=== PATIENT | male | born 1960 | race Caucasian/White ===

== ENCOUNTER 2018-04-06 19:23 | Emergency (ER) | payer SELFPAY ==
--- OUTSIDE RECORDS SUMMARY | 2018-04-06 19:25 | XMS REPORT ---
:1960 Author Organization eClinicalWorks Care Team Providers Name Role Phone Garima Kwok Provider Role Unavailable Allergies, Adverse Reactions, Alerts Substance Reaction Event Type N.K.D.A. 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 Medications Medication Code Code Instructions Start End Status Dosage System Date Date Metformin HCl [facility] 42879471349 1000MG Orally Active take one Twice a day tablet by mouth once daily in the morning before breakfast GlyBURIDE ND 58329383224 5MG Orally Active take one twice a day tablet by with meals mouth twice daily before meal(s) Tamsulosin HCl ND 23521592830 0.4MG Orally Mar 14, Active take one Once a day 2018 capsule by mouth once daily in evening Pravastatin ND 08061055929 20 MG Orally Active 1 tablet Sodium Once a day Gabapentin ND [id number] 300 MG Orally September 15, Active 1 capsule Twice a day 2017 Results No Known Results Summary Purpose eClinicalWorks Submission
[2018-04-06] MEDS ORDERED: LIDOCAINE 1% MPF 5 ML VIAL ONE (19:51)
--- NOTE | 2018-04-06 20:20 | EDPHYS ---
Physician Documentation [facility] Name: Wayne Billy Age: 57 yrs Sex: Male : 1960 Arrival Date: 04/06/2018 Time: 19:26 Bed 19 Private MD: ED Physician Jose Carballo HPI: 04/06 20:14 This 57 yrs old Male presents to ER via Ambulatory with complaints of gs Splinter under nail. 20:14 The complaints affect the left thumbnail. Onset: The symptoms/episode began/occurred 2 gs day(s) ago. Modifying factors: The symptoms are alleviated by nothing, the symptoms are aggravated by nothing. Associated signs and symptoms: Pertinent negatives: fever. Severity of symptoms: At their worst the symptoms were moderate, in the emergency department the symptoms are unchanged. The patient has not experienced similar symptoms in the past. Historical: - Allergies: 19:36 No Known Allergies; ak1 - Home Meds: 19:36 Glyburide Oral [Active]; metformin 1,000 mg Oral tr24 once daily [Active]; ak1 - PMHx: 19:36 Diabetes - NIDDM; ak1 - PSHx: 19:36 Hernia repair; ak1 - Immunization history:: Adult Immunizations unknown, Last tetanus immunization: > 10 years ago. - Social history:: Smoking status: Patient/guardian denies using tobacco. - Ebola Screening: : No symptoms or risks identified at this time. ROS: 20:14 All other systems are negative. gs Exam: 20:14 Skin: Warm, dry with normal turgor. Normal color with no rashes, no lesions, and no gs evidence of cellulitis. Neuro: Awake and alert, GCS 15, oriented to person, place, time, and situation. Cranial nerves II-XII grossly intact. Motor strength 5/5 in all extremities. Sensory grossly intact. Cerebellar exam normal. Normal gait. 20:14 Constitutional: The patient appears alert, awake. 20:14 Musculoskeletal/extremity: ROM: no acute changes, Circulation is intact in all extremities. fb splinter under thumbnail no cellulitis. Vital Signs: 19:33 BP 141 / 85; Pulse 108; Resp 16; Temp 99.9(O); Pulse Ox 97% on R/A; Weight 90.72 kg ak1 (R); Height 5 ft. 8 in. (172.72 cm) (R); Pain 5/10; 19:33 Body Mass Index 30.41 (90.72 kg, 172.72 cm) ak1 Procedures: 20:14 Foreign Body Removal: sliver of wood, from the left left thumbnail, by using a hemostat, The patient tolerated the removal well. Nerve block: (digital) of left thumb. Medication: Lidocaine 1% without epinephrine Amount: 2 mls were injected, Effect: the patient's symptoms are improved, Set up for procedure. Performed by Jose Carballo MD Patient tolerated well. MDM: 19:39 Patient medically screened. 20:14 Data reviewed: vital signs, nurses notes. 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 Exp: ak1 04/17/2020. Lot #: [id number]. } Route: IM; Site: right deltoid; 21:00 Follow up: Response: No adverse reaction ak Disposition: 04/06/18 20:20 Discharged to Home. Impression: Puncture wound with foreign body of left hand. - Condition is Stable. - Prescriptions for Keflex 500 mg Oral Capsule - take 1 capsule by ORAL route every 12 hours for 7 days; 14 capsule. - Medication Reconciliation Form, Thank You Letter, Antibiotic Education, Prescription Opioid Use form. - Follow up: Private Physician; When: 2 - 3 days; Reason: Re-evaluation by your physician. Signatures: Brooklynn Baker RN RN [facility] Jose Carballo MD MD Corrections: (The following items were deleted from the chart) 20:14 19:33 Immunization history: Adult Immunizations unknown, Last tetanus immunization: < gs 10 years ago ak1 20:37 20:20 04/06/2018 20:20 Discharged to Home. Impression: Puncture wound with foreign body ak1 of left hand. Condition is Stable. Forms are Medication Reconciliation Form, Thank You Letter, Antibiotic Education, Prescription Opioid Use. Follow up: Private Physician; When: 2 - 3 days; Reason: Re-evaluation by your physician.
--- NOTE | 2018-04-06 20:20 | ER ---
Nurse's Notes [facility] Name: Wayne Billy Age: 57 yrs Sex: Male : 1960 Arrival Date: 04/06/2018 Time: 19:26 Bed 19 Private MD: Diagnosis: Puncture wound with foreign body of left hand Presentation: 04/06 19:33 Presenting complaint: Patient states: left thumb nail with wooden splinter happened ak1 yesterday. pt c/o soreness to left thumbnail. Transition of care: patient was not received from another setting of care. Onset of symptoms was April 05, 2018. Risk Assessment: Do you want to hurt yourself or someone else? Patient reports no desire to harm self or others. Initial Sepsis Screen: Does the patient meet any 2 criteria? No. Patient's initial sepsis screen is negative. Does the patient have a suspected source of infection? No. Patient's initial sepsis screen is negative. Care prior to arrival: None. 19:33 Method Of Arrival: Ambulatory ak1 19:33 Acuity: CRISTAL 4 ak1 Triage Assessment: 19:36 General: Appears in no apparent distress. Behavior is calm, cooperative. Pain: ak1 Complains of pain in left thumbnail. EENT: No signs and/or symptoms were reported regarding the EENT system. Neuro: No deficits noted. Cardiovascular: No deficits noted. Respiratory: No deficits noted. GI: No signs and/or symptoms were reported involving the gastrointestinal system. : No signs and/or symptoms were reported regarding the genitourinary system. Derm: FB noted under left thumb nail. Musculoskeletal: No signs and/or symptoms reported regarding the musculoskeletal system. Historical: - Allergies: 19:36 No Known Allergies; ak1 - Home Meds: 19:36 Glyburide Oral [Active]; metformin 1,000 mg Oral tr24 once daily [Active]; ak1 - PMHx: 19:36 Diabetes - NIDDM; ak1 - PSHx: 19:36 Hernia repair; ak1 - Immunization history:: Adult Immunizations unknown, Last tetanus immunization: > 10 years ago. - Social history:: Smoking status: Patient/guardian denies using tobacco. - Ebola Screening: : No symptoms or risks identified at this time. Screenin:38 Abuse screen: Denies threats or abuse. Denies injuries from another. Nutritional ak1 screening: No deficits noted. Tuberculosis screening: No symptoms or risk factors identified. Fall Risk None identified. Assessment: 19:39 Reassessment: Patient appears in no apparent distress at this time. No changes from ak1 previously documented assessment. Patient and/or family updated on plan of care and expected duration. Pain level reassessed. Patient is alert, oriented x 3, equal unlabored respirations, skin warm/dry/pink. no change from triage assessment. 20:37 Reassessment: left thumb bandaged with non adherent dressing and Tegaderm per pt ak1 request. Vital Signs: 19:33 BP 141 / 85; Pulse 108; Resp 16; Temp 99.9(O); Pulse Ox 97% on R/A; Weight 90.72 kg ak1 (R); Height 5 ft. 8 in. (172.72 cm) (R); Pain 5/10; 19:33 Body Mass Index 30.41 (90.72 kg, 172.72 cm) ak1 ED Course: 19:26 Patient arrived in ED. es 19:28 Jose Carballo MD is Attending Physician. gs 19:33 Brooklynn Baker, RN is Primary Nurse. ak1 19:34 Triage completed. ak1 19:36 Arm band placed on Patient placed in an exam room, on a stretcher, Patient notified of ak1 wait time. 19:38 Patient has correct armband on for positive identification. Bed in low position. Call ak1 light in reach. Side rails up X 1. Pulse ox on. NIBP on. 20:30 No provider procedures requiring assistance completed. Patient did not have IV access ak1 during this emergency room visit. Administered Medications: 19:43 Drug: Lidocaine (2 %) 5 mg Volume: 5 ml; Route: Infiltration; ak1 20:24 Drug: Tetanus-Diphtheria Toxoid Adult 0.5 ml {Talcer: [employer]. Exp: ak1 04/17/2020. Lot #: [id number]. } Route: IM; Site: right deltoid; 21:00 Follow up: Response: No adverse reaction ak1 Outcome: 20:20 Discharge ordered by . gs 20:30 Discharged to home ambulatory, with family. ak1 20:30 Condition: good 20:36 Discharge instructions given to patient, Instructed on discharge instructions, follow ak1 up and referral plans. medication usage, wound care, Demonstrated understanding of instructions, follow-up care, medications, wound care, Prescriptions given X 1. 20:37 Patient left the ED. ak1 Signatures: Sheba Thomas Amber, RN RN ak1 Jose Carballo MD MD gs Corrections: (The following items were deleted from the chart) 20:14 19:33 Immunization history: Adult Immunizations unknown, Last tetanus immunization: < gs 10 years ago ak1
[2018-04-06] MEDS ORDERED: TETANUS & DIPHTHERIA TOX,ADULT 0.5 ML VIAL ONE (20:30)
== END 2018-04-06 20:37 | disposition home or self-care (01) ==
LOC: ER 19:23
PROC: 3E0T3BZ Introduction of Anesthetic Agent into Peripheral Nerves and Plexi, Percutaneous Approach (ICD-10-PCS; principal; 2018-04-06)
DX: S61.042A Puncture wound with foreign body of left thumb without damage to nail, initial encounter (principal); W45.8XXA Other foreign body or object entering through skin, initial encounter; Z23 Encounter for immunization; E11.9 Type 2 diabetes mellitus without complications; Z79.84 Long term (current) use of oral hypoglycemic drugs
CPT/HCPCS: 64450; 90714; 99283

== ENCOUNTER 2020-11-28 07:09 | Day surgery (SDC) | payer OTHER ==
[2020-11-28] MEDS ORDERED: NA CHLORIDE 0.9% 1,000 ML ONE (07:49)
[2020-11-28] MEDS ORDERED: LIDOCAINE 1% MPF 30 ML VIAL ONE (07:58)
[2020-11-28] MEDS ORDERED: MIDAZOLAM HCL 2 MG/2 ML INJ ONE (07:58)
[2020-11-28] MEDS ORDERED: propofoL 200 MG/20 ML VIAL IV ONE ×2 (07:58)
[2020-11-28] MEDS ORDERED: FENTANYL CITR 100 MCG/2 ML ONE (07:58)
[2020-11-28] MEDS ORDERED: CEFAZOLIN/SWI 1gm 1 GM/10 ML SYR ONE (08:21)
--- NOTE | 2020-11-28 08:41 | ENDO RPT ---
[address], [address] EGD WITH PEG PROCEDURE REPORT EXAM DATE: 11/28/2020 PATIENT NAME: Wayne Billy MR #: [id number] BIRTHDATE: 1960 ATTENDING: Freddy Calixto DR STATUS: outpatient SUPERVISOR STATEMENT CLERKS: Ligia Lorenz RN INDICATIONS: The patient is a 59 yr old Male here for an EGD with PEG due to dysphagia and Oropharyngeal cancer PROCEDURE PERFORMED: EGD with biopsy EGD-PEG MEDICATIONS: Per Anesthesia. TOPICAL ANESTHETIC: none CONSENT: The patient understands the risks and benefits of the procedure and understands that these risks include, but are not limited to: sedation, allergic reaction, infection, perforation and/or bleeding. Alternative means of evaluation and treatment include, among others: physical exam, x-rays, and/or surgical intervention. The patient elects to proceed with this endoscopic procedure. DESCRIPTION OF PROCEDURE: During intra-op preparation period all mechanical medical equipment was checked for proper function. Hand hygiene and appropriate measures for infection prevention was taken. After the risks, benefits and alternatives of the procedure were thoroughly explained, Informed consent was verified, confirmed and timeout was successfully executed by the treatment team. The patient was anesthetized with topical anesthesia and the EG-[id number] ([id number]) endoscope was introduced through the mouth and advanced to the second portion of the duodenum. The instrument was slowly withdrawn as the mucosa was fully examined. Duodenitis was found in the bulb and descending duodenum. A biopsy for H. pylori was taken. The stomach was then inflated with air, and by a combination of transillumination and manual palpation, the site for the gastrostomy tube placement was selected and marked on the anterior abdominal wall. The skin of the anterior abdomen was surgically prepped and draped with sterile towels. Utilizing strict sterile technique, the selected site was then anesthetized with 1% xylocaine by injection into the skin and subcutaneous tissue. A 1 cm incision was made through the skin and subcutaneous tissue, and the needle/cannula assembly was then passed through the abdominal wall and through the anterior wall of the stomach, maintaining visualization with the endoscope. A snare device previously placed through the instrument channel was then opened and placed around the cannula, the needle was removed, and the insertion wire was passed through the cannula and into the stomach lumen. The snare was then loosened from the cannula, and repositioned to snare the insertion wire. The snare was then pulled up to the endoscope distal tip, and the scope was then withdrawn bringing with it the snare and insertion wire. The insertion wire was then released from the snare, and then loop-attached to the PEG PULL gastrostomy tube. Using the pull technique, the G-tube was then pulled into place by traction on the insertion wire at the abdominal wall end. The G-tube insertion site was then cleansed once again, and the external bolster was placed over the tube to secure it to the abdominal wall. A sterile dressing was then applied, and the procedure terminated. Retroflexed views revealed no abnormalities. The gastroscope was then slowly withdrawn and removed. ADVERSE EVENT: There were no complications. IMPRESSIONS: Duodenitis was found in the bulb and descending duodenum RECOMMENDATIONS: 1. acid suppression therapy 2. anti-reflux regimen 3. await biopsy results 4. begin feeding tomorrow 5. avoid NSAIDS 6. follow-up: office 2 week(s) 7. follow-up of helicobacter pylori status, treat if indicated 8. follow PEG suggestions REPEAT EXAM: Freddy Calixto DR eSigned: Freddy Calixto DR 11/28/2020 8:41 AM cc: CPT CODES: ICD9 CODES: PATIENT NAME: Wayne Billy MR#: [id number]
[2020-11-28 11:10] VITALS: TEMP 98; O2SAT 96
[2020-11-28 11:13] VITALS: BP 95/59
== END 2020-11-28 10:50 | disposition home or self-care (01) ==
LOC: OR 07:09
PROVIDERS: ATTEND Surgery
PROC: 0DB98ZX Excision of Duodenum, Via Natural or Artificial Opening Endoscopic, Diagnostic (ICD-10-PCS; 2020-11-28)
PROC: 0DH63UZ Insertion of Feeding Device into Stomach, Percutaneous Approach (ICD-10-PCS; principal; 2020-11-28 08:00)
DX: R13.12 Dysphagia, oropharyngeal phase (principal); C10.9 Malignant neoplasm of oropharynx, unspecified; Z20.822 Contact with and (suspected) exposure to COVID-19; K29.80 Duodenitis without bleeding
CPT/HCPCS: 82947; 88305; 43246; 43239; U0003; J2704 ×2; J2250; J3010; J0690; J7030

== ENCOUNTER 2020-12-14 00:02 | Emergency (ER) | payer OTHER ==
[2020-12-14] MEDS ORDERED: LIDOCAINE VISCOUS 2% SOLN 15 ML UDC ONE (01:30)
--- NOTE | 2020-12-14 03:06 | EDPHYS ---
Physician Documentation [facility] Name: Wayne Billy Age: 60 yrs Sex: Male : 1960 Arrival Date: 12/14/2020 Time: 00:03 Bed 13 Private MD: ED Physician Red Wakefield HPI: 12/14 01:15 This 60 yrs old Male presents to ER via Wheelchair with complaints of PEG cp tube dislodged. Historical: - Allergies: 00:27 No Known Allergies; em - PMHx: 00:27 Diabetes - NIDDM; neck cancer; em - PSHx: 00:27 Tonsillectomy; peg tube; em - Immunization history:: Adult Immunizations up to date, Client reports having NOT received the Covid vaccine. - Social history:: Smoking status: Patient denies any tobacco usage or history of. ROS: 01:20 Abdomen/GI: Positive for abdominal pain, Negative for vomiting, diarrhea, constipation, cp anorexia. 01:20 Eyes: Negative for injury, pain, redness, and discharge. cp 01:20 Constitutional: Negative for body aches, chills, fever, poor PO intake. 01:20 Cardiovascular: Negative for chest pain, palpitations. 01:20 Respiratory: Negative for cough, shortness of breath, wheezing. 01:20 Back: Negative for radiated pain. 01:20 Neuro: Negative for altered mental status, headache, weakness. 01:20 All other systems are negative. Exam: 01:25 Constitutional: The patient appears in no acute distress, alert, awake, cp non-diaphoretic, non-toxic, well developed, well nourished. 01:25 Head/Face: Normocephalic, atraumatic. cp 01:25 Eyes: Periorbital structures: appear normal, Conjunctiva: normal, no exudate, no injection, Sclera: no appreciated abnormality, Lids and lashes: appear normal, bilaterally. 01:25 Chest/axilla: Inspection: normal. 01:25 Cardiovascular: Rate: normal, Rhythm: regular. 01:25 Respiratory: the patient does not display signs of respiratory distress, Respirations: normal, no use of accessory muscles, no retractions, labored breathing, is not present, Breath sounds: are clear throughout, no decreased breath sounds, no stridor, no wheezing. 01:25 Abdomen/GI: Inspection: gastric opening noted LUQ, Bowel sounds: active, all quadrants, Palpation: soft, in all quadrants, mild abdominal tenderness, in the left upper quadrant and left lower quadrant, rebound tenderness, is not appreciated, involuntary guarding, is elicited in the left upper quadrant and left lower quadrant. Vital Signs: 00:25 BP 123 / 80; Pulse 93; Resp 18; Temp 98.1; Pulse Ox 99% on R/A; Weight 65.77 kg; Height em 5 ft. 8 in. (172.72 cm); Pain 8/10; 01:16 BP 120 / 80; Pulse 85; Resp 17; Temp 98.2; Pulse Ox 100% on R/A; ch4 00:25 Body Mass Index 22.05 (65.77 kg, 172.72 cm) em MDM: 00:30 Patient medically screened. cp 03:05 Data reviewed: vital signs, nurses notes, radiologic studies, plain films. cp 03:05 Test interpretation: by ED physician or midlevel provider: xrays show replacement of cp gastrostomy tube with tube appearing in place in stomach. Counseling: I had a detailed discussion with the patient and/or guardian regarding: the historical points, exam findings, and any diagnostic results supporting the discharge/admit diagnosis, radiology results, to return to the emergency department if symptoms worsen or persist or if there are any questions or concerns that arise at home. Response to treatment: the patient's symptoms have resolved after treatment. 12/14 02:08 Order name: ENTEROSTOMY TUBE CHECK W/CONTR EDMS Administered Medications: 01:12 Drug: Viscous Lidocaine Liquid (4 %) 5 ml Route: Mucous Membrane; ch4 Disposition: 04:14 Co-signature as Attending Physician, Red Wakefield MD. pkl Disposition Summary: 12/14/20 03:06 Discharge Ordered Location: Home cp Problem: new cp Symptoms: are resolved cp Condition: Stable cp Diagnosis - Encounter for attention to gastrostomy - replacement of gastrostomy tube cp Followup: cp - With: Freddy Calixto MD - When: As needed - Reason: Worsening of condition Discharge Instructions: - Discharge Summary Sheet cp - Gastrostomy Tube Replacement cp - Gastrostomy Tube Home Guide, Adult cp Forms: - Medication Reconciliation Form cp - Thank You Letter cp - Antibiotic Education cp - Prescription Opioid Use cp Signatures: Dispatcher [employer] EDMS Red Wakefield MD MD pkl Munoz, Edgar, RN RN em Derrell Whelan PA PA cp Herman, Christina, RN RN ch4 Corrections: (The following items were deleted from the chart) 02:08 01:40 Abdomen 1 View (KUB)+RAD.RAD.BRZ ordered. EDMS EDMS
--- NOTE | 2020-12-14 03:06 | ER ---
Nurse's Notes [facility] Name: Wayne Billy Age: 60 yrs Sex: Male : 1960 Arrival Date: 12/14/2020 Time: 00:03 Bed 13 Private MD: Diagnosis: Encounter for attention to gastrostomy-replacement of gastrostomy tube Presentation: 12/14 00:25 Chief complaint: Patient states: got feeding tube pulled out earlier today around 8 PM, em pt has feeding tube in hand, unknown what size it is, reports abdominal pain. Coronavirus screen: Vaccine status: Patient reports being unvaccinated. Ebola Screen: Patient negative for fever greater than or equal to 101.5 degrees Fahrenheit, and additional compatible Ebola Virus Disease symptoms Patient denies exposure to infectious person. Patient denies travel to an Ebola-affected area in the 21 days before illness onset. No symptoms or risks identified at this time. Initial Sepsis Screen: Does the patient meet any 2 criteria? No. Patient's initial sepsis screen is negative. Does the patient have a suspected source of infection? No. Patient's initial sepsis screen is negative. Risk Assessment: Do you want to hurt yourself or someone else? Patient reports no desire to harm self or others. Onset of symptoms was December 14, 2020. 00:25 Method Of Arrival: Wheelchair em 00:25 Acuity: CRISTAL 3 em Historical: - Allergies: 00:27 No Known Allergies; em - PMHx: 00:27 Diabetes - NIDDM; neck cancer; em - PSHx: 00:27 Tonsillectomy; peg tube; em - Immunization history:: Adult Immunizations up to date, Client reports having NOT received the Covid vaccine. - Social history:: Smoking status: Patient denies any tobacco usage or history of. Screenin:44 Abuse screen: Denies threats or abuse. Nutritional screening: No deficits noted. ch4 Tuberculosis screening: No symptoms or risk factors identified. Fall Risk None identified. Assessment: 00:42 General: Appears in no apparent distress. Behavior is cooperative, agitated. Pain: ch4 Complains of pain in abdomen. Neuro: No deficits noted. Cardiovascular: No deficits noted. Respiratory: No deficits noted. GI: Bowel sounds present X 4 quads. Reports upper abdominal pain, feeding tube accidentally removed Patient currently denies vomiting. : No deficits noted. EENT: No deficits noted. Derm: No deficits noted. Musculoskeletal: No deficits noted. 03:36 Reassessment: Patient is alert, oriented x 3, equal unlabored respirations, skin df1 warm/dry/pink. Patient states feeling better. Patient states symptoms have improved. Vital Signs: 00:25 BP 123 / 80; Pulse 93; Resp 18; Temp 98.1; Pulse Ox 99% on R/A; Weight 65.77 kg; Height em 5 ft. 8 in. (172.72 cm); Pain 8/10; 01:16 BP 120 / 80; Pulse 85; Resp 17; Temp 98.2; Pulse Ox 100% on R/A; ch4 00:25 Body Mass Index 22.05 (65.77 kg, 172.72 cm) em ED Course: 00:03 Patient arrived in ED. cf2 00:27 Triage completed. em 00:27 Arm band placed on. em 00:29 Derrell Whelan PA is PHCP. cp 00:29 Red Wakefield MD is Attending Physician. cp 00:30 Brianna Spaulding, EMMANUEL is Primary Nurse. ch4 00:44 Patient has correct armband on for positive identification. ch4 01:16 No provider procedures requiring assistance completed. Wound care: to peg tube located ch4 on abdomen. 02:55 ENTEROSTOMY TUBE CHECK W/CONTR In Process Unspecified. EDMS 03:04 Freddy Calixto MD is Referral Physician. cp 03:36 peg tube replacement. df1 Administered Medications: 01:12 Drug: Viscous Lidocaine Liquid (4 %) 5 ml Route: Mucous Membrane; ch4 Outcome: 03:06 Discharge ordered by . cp 03:36 Discharged to home df1 03:36 Condition: improved 03:37 Patient left the ED. df1 Signatures: Dispatcher [employer] EDMS Luca Brandt, RN RN Derrell Whelan PA PA cp Mj Jeff cf2 Brianna Spaulding, RN RN ch4 Katelin Kaplan df1
[2020-12-14 03:48] VITALS: BP 120/80; TEMP 98.2; O2SAT 100
--- NOTE | 2020-12-14 07:35 | RAD REPORT ---
EXAM DESCRIPTION: RAD - ENTEROSTOMY TUBE CHECK W/CONTR - 12/14/2020 2:55 am FINDINGS: Portable KUB images were obtained prior to and subsequent to replacement or repositioning of an enterostomy tube. Initial image shows moderately large stool volume filling but not dilating the colon. No bowel obstru ction, free air or emergent finding. Following retrograde injection of contrast, KUB imaging shows the contrast within the gastric fundus. Small amount of contrast is present along the proximal portion of the bulb. No extravasation or extr aluminal contrast confirmed.
== END 2020-12-14 03:37 | disposition home or self-care (01) ==
LOC: ER 00:02
DX: Z43.1 Encounter for attention to gastrostomy (principal)
CPT/HCPCS: 49465; 99283

== ENCOUNTER 2021-09-19 16:15 | Emergency (ER) | payer OTHER ==
--- OUTSIDE RECORDS SUMMARY | 2021-09-19 16:17 | XMS REPORT | Continuity of Care Document ---
:1960 Author Organization [facility] t Address [address] [place] [address] [address] [place] [address] Care Team Providers Name Role Phone [place], Cinda Primary Care Physician DARION Attending Clinician Unavailable Rissa Attending Clinician Unavailable SYSTEM, NOT IN Attending Clinician Unavailable Payers Payer Name Policy Type Policy Number Effective Date Expiration Date Jojo RANDHAWA [id number] 2021 HEALTH PLAN 00:00:00 Problems Condition Condition Condition Status Onset Resolution Last Treating Co mments Source Name Details Category Date Date Treatment Clinician Date No known No known Disease [place] active active Health problems problems Allergies, Adverse Reactions, Alerts Allergy Allergy Status Severity Reaction(s) Onset Inactive Treating Comm ents Source Name Type Date Date Clinician No Known DA Active [facility] Social History Social Habit Start Date Stop Date Quantity Comments Source History of tobacco Cigarette Smoker [facility] use Cigarettes smoked 2021-09-09 2021-09-09 [facility] current (pack per 00:00:00 00:00:00 day) - Reported Cigarette pack-years 2021-09-09 2021-09-09 [facility] 00:00:00 Tobacco use and 2021-09-09 2021-09-09 Smokeless tobacco [facility] exposure 00:00:00 00:00:00 non-user Alcohol intake 2021-09-09 2021-09-09 Lifetime [facility] 00:00:00 00:00:00 non-drinker (finding) Sex Ass[birth year] [facility] 00:00:00 00:00:00 Smoking Status Start Date Stop Date Source Tobacco smoking consumption unknown [facility] Smokes tobacco daily 2021-09-09 00:00:00 [facility] Medications Ordered Filled Start Stop Current Ordering Indication Dosage Frequency Signature Comments Components Source Medication Medication Date Date Medication? Clinician (SIG) Name Name No known No No known [place] medications 09-09 medication He alth 14:04: s 34 Gabapentin Gabapentin Yes Lissette 1 capsule Common 09-15 [facility] 00:00: - [facility] 00 [facility] Pravastatin Pravastatin Yes Lissette 1 tablet Common Sodium Sodium Syed [facility] - [facility] Tamsulosin Tamsulosin Yes Lissette take one Common HCl HCl Syed capsule by Spirit mouth once - [facility] daily in [facility] GlyBURIDE GlyBURIDE Yes Lissette TAKE TWO Common Syed (2) [facility] TABLET(S) - [facility] Metformin Metformin Yes Lissette TAKE ONE Common HCl HCl Syed (1) [facility] TABLET(S) - [facility]. [place] Vital Signs Vital Name Observation Time Observation Value Comments Source Body height 2021-09-09 18:59:00 172.7 cm [facility] Body weight 2021-09-09 18:59:00 61.236 kg [facility] BMI 2021-09-09 18:59:00 20.53 kg/m2 [facility] Procedures This patient has no known procedures. Encounters Start End Encounter Admission Attending Care Care Encounter Source Date/Time Date/Time Type Type Clinicians Facility Department ID 2021-09-[address] [facility] [id number] [place] 12:51:01 [id number] [place] [facility] 2021-09-[address] [facility] [id number] [place] 07:52:57 [id number] [place] [facility] 2021-09-[address] [facility] [id number] [place] 14:29:03 [id number] [place] [facility] 2021-08-[address] [facility] [id number] [place] 18:35:59 [id number] [facility] 2021-08-[address] [facility] [id number] [place] 10:02:31 [id number] [place] [facility] 2021-08-21 Outpatient [place], STLMLC STLMLC [id number] Common 11:28:00 [facility] 2021-05-23 Outpatient [place], STLMLC STLMLC [id number] Common 13:52:01 [facility] 2021-04-24 Outpatient [place], STLMLC STLMLC [id number] Common 14:24:55 Aileen [id number] [facility] 2021-04-24 Outpatient [place], STLMLC STLMLC [id number] Common 13:26:48 Aileen 10687 [facility] 2021-04-24 Outpatient [place], STLMLC STLMLC [id number] Common 13:09:59 Aileen 66987 [facility] 2021-04-24 Outpatient [place], STLMLC STLMLC [id number] Common 12:24:06 Aileen 27786 [facility] 2021-04-24 Outpatient [place], STLMLC STLMLC [id number] Common 12:08:45 Aileen 66944 [facility] 2021-04-24 Outpatient [place], STLMLC STLMLC [id number] Common 12:07:09 Aileen [id number] [facility] 2021-04-24 Outpatient [place], STLMLC STLMLC [id number] Common 12:03:10 Aileen 84311 [facility] 2021-04-24 Outpatient [place], STLMLC STLMLC [id number] Common 11:52:54 Aileen 78154 [facility] 2021-04-24 Outpatient [place], STLMLC STLMLC [id number] Common 11:48:59 Aileen [id number] [facility] 2021-04-24 Outpatient [place], STLMLC STLMLC [id number] Common 11:48:19 Aileen [id number] [facility] 2021-04-24 Outpatient [place], STLMLC STLMLC [id number] Common 11:05:15 Aileen [id number] [facility] 2021-04-24 Outpatient [place], STLMLC STLMLC [id number] Common 11:04:26 Aileen [id number] [facility] 2020-10-26 Outpatient [facility] [id number] 16:11:46 PROVIDER Isidro dailey 2021-09-09 2021-09-09 Office Ben Orlando VALERY 6400 [id number] [place] 14:30:00 14:54:[address] [id number] Health [id number] 2021-08-27 2021-08-27 Telephone Ben Orlando [facility]TP 6400 [id number] [place] 00:00:00 00:00:[address] [id number] Health [id number] 2021-03-11 2021-03-11 ambulatory STLMLC STLMLC [id number] Common 00:00:00 00:00:00 [facility] 2020-11-23 2020-11-23 Outpatient STLMLC STLMLC [id number] Common 00:00:00 00:00:00 [facility] 2020-11-20 2020-11-20 Outpatient STLMLC STLMLC [id number] Common 00:00:00 00:00:00 [facility] 2020-10-16 2020-10-16 Outpatient [facility] [id number] 05:21:00 05:21:00 -[id number] [facility] 2020-10-08 2020-10-08 Outpatient STLMLC STLMLC [id number] Common 00:00:00 00:00:00 [facility] 2020-08-31 2020-08-31 Outpatient STLMLC STLMLC [id number] Common 00:00:00 00:00:00 [facility] 2020-08-07 2020-08-07 Outpatient STLMLC STLMLC [id number] Common 00:00:00 00:00:00 [facility] 2020-05-31 2020-05-31 Outpatient STLMLC STLMLC [id number] Common 00:00:00 00:00:00 [facility] 2020-03-01 2020-03-01 Outpatient STL[facility]C STLMLC [id number] Common 00:00:00 00:00:00 [facility] 2020-02-02 2020-02-02 Outpatient STLMLC STLMLC [id number] Common 00:00:00 00:00:00 [facility] 2020-01-25 2020-01-25 Outpatient STLMLC STLMLC [id number] Common 00:00:00 00:00:00 [facility] 2020-01-24 2020-01-24 Outpatient STL[facility]C STL[facility]C [id number] Common 00:00:00 00:00:00 [facility] 2020-01-13 2020-01-13 Outpatient STLMLC STLMLC [id number] Common 00:00:00 00:00:00 [facility] 2020-01-05 2020-01-05 Outpatient STLMLC STLMLC [id number] Common 00:00:00 00:00:00 [facility] 2019-12-29 2019-12-29 Outpatient STLMLC STLMLC [id number] Common 00:00:00 00:00:00 [facility] 2019-12-26 2019-12-26 Outpatient STLMLC STLMLC [id number] Common 00:00:00 00:00:00 [facility] 2019-12-26 2019-12-26 Outpatient STLMLC STLMLC [id number] Common 00:00:00 00:00:00 [facility] 2019-04-28 2019-04-28 [facility] [id number] Common 13:20:00 13:20:00 [facility] 2018-11-12 2018-11-12 Out[facility] [id number] Common 08:40:00 08:40:[address] [facility] 2018-07-06 2018-07-06 [facility] [id number] Common 08:40:00 08:40:[address] [facility] 2018-05-13 2018-05-13 Out[facility] [id number] Common 10:30:00 10:30:[address] [facility] [address] [facility] 2018-04-28 2018-04-28 Out[facility] [id number] Common 14:53:00 14:53:[address] [facility] 2017-09-15 2017-09-15 [facility] [id number] Common 15:30:00 15:30:[address] [facility] [address] [facility] Results This patient has no known results.
--- NOTE | 2021-09-19 18:04 | RAD REPORT ---
EXAM DESCRIPTION: CT - Head C Spine Cap Wo Con - 09/19/2021 5:47 pm CLINICAL HISTORY: fall COMPARISON: No comparisons TECHNIQUE: CT head without contrast. CT cervical spine without contrast with coronal and sagittal reformatted images. CT chest, abdomen and pelvis with coronal and sagittal reformatted images of the spine. All CT scans are performed using dose optimization technique as appropriate and may include automated exposure control or mA/KV adjustment according to patient size. FINDINGS: CT HEAD WITHOUT CONTRAST: No intracranial hemorrhage, hydrocephalus or extra-axial fluid collection. No acute large vascular te rritory infarct. The paranasal sinuses and mastoids are clear. The calvarium is intact. CT CERVICAL SPINE WITHOUT CONTRAST: No fracture or subluxation. The prevertebral soft tissues are normal in thickness. CT CHEST, ABDOMEN, PELVIS: Thorax: Chest Wall: No abnormal mass Lungs: No acute abnormality. Pleura: No effusions or pneumothorax. Pam/Mediastinum: No lymphadenopathy. Aorta/Pulmonary Arteries: Unremarkable Heart: Normal size. Abdomen/Pelvis: Liver: No acute abnormality or suspicious lesions. Biliary: No biliary ductal dilatation. Stomach: No significant focal abnormality. Duodenum: No significant focal abnormality. Pancreas: No significant abnormality. Spleen: No significant abnormality. Adrenal: No suspicious lesions. Kidney/ureter: No hydronephrosis. No renal calculi. Retroperitoneum: No retroperitoneal adenopathy. Vascular: No aneurysm. Bowel: No significant focal abnormality. Peritoneum: No ascites or free air. Bladder: Nonspecific mild circumferential bladder wall thickening. Reproductive: No adnexal masses. Bones: No acute fracture. Other: n/a The paranasal sinuses and mastoids are clear. Right mastoid effusion. CT CERVICAL SPINE WITHOUT CONTRAST: No fracture or subluxation. The prevertebral soft tissues are normal in thickness.Multilevel degener ative changes are present in the spine. IMPRESSION: 1. No acute intracranial abnormality. 2. No acute fracture or traumatic malalignment of the cervical spine. 3. No significant trauma to the chest, abdomen, or pelvis identified.
--- NOTE | 2021-09-19 19:28 | RAD REPORT ---
EXAM DESCRIPTION: RAD - Clavicle Right - 09/19/2021 7:23 pm CLINICAL HISTORY: PAIN COMPARISON: No comparisons FINDINGS: No acute fracture. No malalignment. Mild right AC joint degenerative changes. IMPRESSION: No acute osseous abnormality involving the right clavicle.
--- NOTE | 2021-09-19 19:31 | ER ---
Nurse's Notes [facility] Name: Wayne Billy Age: 60 yrs Sex: Male : 1960 Arrival Date: 09/19/2021 Time: 16:16 Bed 12 Private MD: Diagnosis: Fall on same level from slipping, tripping and stumbling with subsequent striking against object;Dorsalgia, unspecified;Chest pain, unspecified Presentation: 09/19 16:19 Chief complaint: [place] Pt c/o aa5 pain to back and "around neck". Pt denies LOC, denies head injury. Coronavirus screen: At this time, the client does not indicate any symptoms associated with coronavirus-19. Ebola Screen: No symptoms or risks identified at this time. Initial Sepsis Screen: Does the patient meet any 2 criteria? HR > 90 bpm. Does the patient have a suspected source of infection? No. Patient's initial sepsis screen is negative. Risk Assessment: Do you want to hurt yourself or someone else? Patient reports no desire to harm self or others. Onset of symptoms was August 2021. 16:19 Acuity: CRISTAL 4 aa5 16:19 Method Of Arrival: Ambulatory aa5 Historical: - Allergies: 16:20 No Known Allergies; aa5 - PMHx: 16:20 Diabetes - NIDDM; Neck Cancer; aa5 16:21 Tonsill Cancer; Completed Radiation and Chemotherapy; aa5 - PSHx: 16:21 Tonsillectomy; aa5 16:22 PEG tube and reversal; aa5 - Immunization history:: Adult Immunizations unknown. - Social history:: Smoking status: Patient reports the use of cigarette tobacco products, smokes one-half pack cigarettes per day. Screenin:41 Abuse screen: Denies threats or abuse. Nutritional screening: No deficits noted. jb4 Tuberculosis screening: No symptoms or risk factors identified. Fall Risk None identified. Assessment: 16:41 General: Appears in no apparent distress. uncomfortable, Behavior is calm, cooperative, jb4 appropriate for age. Pain: Complains of pain in right supraclavicular area and neck Pain does not radiate. Pain currently is 6 out of 10 on a pain scale. Neuro: Level of Consciousness is awake, alert, obeys commands, Oriented to person, place, time, situation. Cardiovascular: Patient's skin is warm and dry. Respiratory: Airway is patent Respiratory effort is even, unlabored, Respiratory pattern is regular, symmetrical. Derm: Skin is intact, Skin is pink, warm \\T\\ dry. Musculoskeletal: Circulation, motion, and sensation intact. Range of motion: intact in all extremities. 17:35 Reassessment: Patient appears in no apparent distress at this time. Patient and/or jb4 family updated on plan of care and expected duration. Pain level reassessed. Patient is alert, oriented x 3, equal unlabored respirations, skin warm/dry/pink. 19:15 Reassessment: Patient appears in no apparent distress at this time. Patient and/or jb4 family updated on plan of care and expected duration. Pain level reassessed. Patient is alert, oriented x 3, equal unlabored respirations, skin warm/dry/pink. 19:42 Reassessment: Patient appears in no apparent distress at this time. Patient and/or jb4 family updated on plan of care and expected duration. Pain level reassessed. Patient is alert, oriented x 3, equal unlabored respirations, skin warm/dry/pink. Vital Signs: 16:19 BP 118 / 85; Pulse 101; Resp 18 S; Temp 99.0(TE); Pulse Ox 100% on R/A; Weight 61.23 kg aa5 (R); Height 5 ft. 8 in. (172.72 cm) (R); 19:23 Pulse 75; Resp 16; Pulse Ox 97% on R/A; jb4 16:19 Body Mass Index 20.53 (61.23 kg, 172.72 cm) aa5 ED Course: 16:16 Patient arrived in ED. rg4 16:19 Derrell Whelan PA is PHCP. cp 16:19 Markie Lund MD is Attending Physician. cp 16:19 Arm band placed on. aa5 16:20 Triage completed. aa5 16:37 Erasmo Manzo, EMMANUEL is Primary Nurse. jb4 16:41 Patient has correct armband on for positive identification. Bed in low position. Call jb4 light in reach. Side rails up X 1. 17:48 CT Traumagram (Head C Spine CAP wo con) In Process Unspecified. EDMS 19:25 Clavicle Right XRAY In Process Unspecified. EDMS 19:42 No provider procedures requiring assistance completed. Patient did not have IV access jb4 during this emergency room visit. Administered Medications: No medications were administered Medication: 16:41 VIS not applicable for this client. jb4 Outcome: 19:30 Discharge ordered by . sheri 19:42 Discharged to home ambulatory. jb4 19:42 Condition: stable 19:42 Discharge instructions given to patient, Instructed on discharge instructions, follow up and referral plans. no drinking with medication, medication usage, Demonstrated understanding of instructions, follow-up care, medications, Prescriptions given X 1. 19:42 Patient left the ED. jb4 Signatures: Dispatcher [employer] EDSC Jamia Burns, RN RN aa5 Derrell Whelan PA PA cp Garcia, Rubi rg4 Erasmo Manzo, RN RN jb4 Corrections: (The following items were deleted from the chart) 16:23 16:20 PSHx: PEG tube; aa5 aa5 16:23 16:20 PSHx: Tonsillectomy; aa5 aa5
--- NOTE | 2021-09-19 19:31 | EDPHYS ---
Physician Documentation [facility] Name: Wayne Billy Age: 60 yrs Sex: Male : 1960 Arrival Date: 09/19/2021 Time: 16:16 Bed 12 Private MD: ED Physician Markie Lund HPI: 09/19 16:37 This 60 yrs old Male presents to ER via Ambulatory with complaints of Fall Injury. cp 16:37 Details of fall: The patient fell from an upright position, while walking. Onset: The cp symptoms/episode began/occurred 1-2 weeks ago. 16:37 Associated injuries: The patient sustained neck injury, pain, pain with movement, upper cp back injury, pain, pain with movement, injury to the chest, specifically the right supraclavicular area and right clavicle, pain with movement, tenderness. 16:37 Severity of symptoms: in the emergency department the symptoms are unchanged, despite cp home interventions. 16:37 Patient reports he was walking and slipped on wet rocks near [facility], causing him cp to fall into oyster bed. Patient reports he sustained abrasions and lacerations to extremities and has continued to have pain to chest, back and neck area. Denies hitting head and/or LOC. Historical: - Allergies: 16:20 No Known Allergies; aa5 - PMHx: 16:20 Diabetes - NIDDM; Neck Cancer; aa5 16:21 Tonsill Cancer; Completed Radiation and Chemotherapy; aa5 - PSHx: 16:21 Tonsillectomy; aa5 16:22 PEG tube and reversal; aa5 - Immunization history:: Adult Immunizations unknown. - Social history:: Smoking status: Patient reports the use of cigarette tobacco products, smokes one-half pack cigarettes per day. ROS: 16:40 Constitutional: Negative for body aches, chills, fever, poor PO intake. cp 16:40 Eyes: Negative for injury, pain, redness, and discharge. cp 16:40 Neck: Positive for pain with movement, pain at rest. 16:40 Cardiovascular: Positive for chest pain. 16:40 Back: Positive for pain at rest, pain with movement. 16:40 Skin: Positive for abrasion(s), of the right hand and left hand. 16:40 Neuro: Negative for altered mental status, dizziness, headache, weakness. 16:40 All other systems are negative. Exam: 16:45 Constitutional: The patient appears in no acute distress, alert, awake, cp non-diaphoretic, non-toxic, well developed, well nourished. 16:45 Head/Face: Normocephalic, atraumatic. cp 16:45 Eyes: Periorbital structures: appear normal, Conjunctiva: normal, no exudate, no injection, Sclera: no appreciated abnormality, Lids and lashes: appear normal, bilaterally. 16:45 ENT: External ear(s): are unremarkable, Nose: is normal, Mouth: Lips: moist, Oral mucosa: moist, Posterior pharynx: Airway: no evidence of obstruction, patent. 16:45 Neck: C-spine: vertebral tenderness, that is mild, appreciated at C5 and C6, crepitus, is not appreciated, ROM/movement: limited range of motion, is not appreciated, nuchal rigidity, is not appreciated. 16:45 Chest/axilla: Inspection: normal, Palpation: crepitus, is not appreciated, tenderness, that is moderate, of the right supraclavicular area and right clavicle. 16:45 Cardiovascular: Rate: tachycardic, Rhythm: regular. 16:45 Respiratory: the patient does not display signs of respiratory distress, Respirations: normal, no use of accessory muscles, no retractions, labored breathing, is not present, Breath sounds: are clear throughout, no decreased breath sounds, no stridor, no wheezing. 16:45 Abdomen/GI: Inspection: abdomen appears normal, Palpation: abdomen is soft and non-tender, in all quadrants. 16:45 Back: pain, that is mild, of the right scapular area and thoracic area, ROM is normal. 16:45 Musculoskeletal/extremity: Exam is negative for decreased range of motion, deformity. 16:45 Skin: injury, abrasion(s), of the right hand and left hand. 16:45 Neuro: Orientation: to person, place \T\ time. Mentation: is normal, Cerebellar function: is grossly normal, Motor: moves all fours, strength is normal, Sensation: is normal. Vital Signs: 16:19 BP 118 / 85; Pulse 101; Resp 18 S; Temp 99.0(TE); Pulse Ox 100% on R/A; Weight 61.23 kg aa5 (R); Height 5 ft. 8 in. (172.72 cm) (R); 19:23 Pulse 75; Resp 16; Pulse Ox 97% on R/A; jb4 16:19 Body Mass Index 20.53 (61.23 kg, 172.72 cm) aa5 MDM: 16:31 Patient medically screened. cp 18:15 Differential diagnosis: closed head injury, contusion, fracture, laceration, multiple cp trauma. 19:25 Test interpretation: by ED physician or midlevel provider: xrays of right clavicle cp negative for fracture. 19:30 Data reviewed: vital signs, nurses notes, radiologic studies, CT scan, plain films. cp 19:30 Counseling: I had a detailed discussion with the patient and/or guardian regarding: the cp historical points, exam findings, and any diagnostic results supporting the discharge/admit diagnosis, radiology results, to return to the emergency department if symptoms worsen or persist or if there are any questions or concerns that arise at home. Response to treatment: the patient's symptoms have markedly improved after treatment, and as a result, I will discharge patient. 09/19 16:37 Order name: CT Traumagram (Head C Spine CAP wo con); Complete Time: 18:06 cp 09/19 18:07 Interpretation: Report reviewed. cp 09/19 16:37 Order name: C-Collar; Complete Time: 16:40 cp 09/19 18:46 Order name: Clavicle Right XRAY; Complete Time: 19:29 cp 09/19 19:29 Interpretation: Report reviewed. cp Administered Medications: No medications were administered Disposition Summary: 09/19/21 19:30 Discharge Ordered Location: Home cp Problem: new cp Symptoms: have improved cp Condition: Stable cp Diagnosis - Fall on same level from slipping, tripping and stumbling with subsequent striking cp against object - Dorsalgia, unspecified cp - Chest pain, unspecified cp Followup: cp - With: Private Physician - When: 2 - 3 days - Reason: Recheck today's complaints Discharge Instructions: - Discharge Summary Sheet cp - Acute Back Pain, Adult cp - Nonspecific Chest Pain, Adult cp Forms: - Medication Reconciliation Form cp - Thank You Letter cp - Antibiotic Education cp - Prescription Opioid Use cp Prescriptions: - Mobic 7.5 mg Oral Tablet - take 1 tablet by ORAL route once daily take with food; 20 tablet; Refills: 0, cp Product Selection Permitted Signatures: Dispatcher [employer] [facility] Jamia Burns RN RN aa5 Derrell Whelan PA PA cp Corrections: (The following items were deleted from the chart) 16: 16:20 PSHx: PEG tube; aa5 aa5 16:23 16:20 PSHx: Tonsillectomy; aa5 aa5 19:23 18:19 Clavicle Left+RAD.RAD.BRZ ordered. [facility] 09/20 18:54 09/19 16:37 Associated injuries: The patient sustained injury to the chest, cp specifically the right supraclavicular area and right clavicle, pain with movement, tenderness, cp
[2021-09-19 19:46] VITALS: BP 118/85; TEMP 99
[2021-09-19 19:48] VITALS: O2SAT 97
== END 2021-09-19 19:42 | disposition home or self-care (01) ==
LOC: ER 16:15
DX: R07.9 Chest pain, unspecified (principal); M54.9 Dorsalgia, unspecified; W01.118A Fall on same level from slipping, tripping and stumbling with subsequent striking against other sharp object, initial encounter; E11.9 Type 2 diabetes mellitus without complications; F17.210 Nicotine dependence, cigarettes, uncomplicated; Z85.89 Personal history of malignant neoplasm of other organs and systems
CPT/HCPCS: 70450; 71250; 72125; 99283

== ENCOUNTER 2023-10-07 13:07 | Emergency (ER) | payer MEDICARE ==
--- OUTSIDE RECORDS SUMMARY | 2023-10-07 13:10 | XMS REPORT | Continuity of Care Document ---
Author Name Unknown Address [address] [facility] [address] [place] [address] [facility] thconnect Address [address] [facility] [place] [place] [address] Care Team Providers Care Kidney Trimmer Name Role Phone Aileen Kwok Primary Care Physician Aileen Kwok Attending Clinician Unavailable SYSTEM, PROVIDER NOT IN Attending Clinician Unav ailable ROUSE_F Attending Clinician Unavailable BEN [place] Attending Clinician Unavailable ROUSE_F Admitting Clinician Unavailable Payers Payer Name Policy Type Policy Number Effective Date Expirati on Date Source [facility] [id number] 2021 00:00:00 2021 00:00:00 [facility] MEDICARE ADVANTAGE [place]/ADVA NTAGE - PPO) [id number] 2023 00:00:00 2023 00:00:00 [place] [id number] 2018 00:00:00 [place] [id number] [facility] Bradfordetter from [facility] [id number] [facility] Ambetter from [facility] [id number] [facility] Ambetter from [facility] [id number] [facility] Problems Condition Name Condition Details Condition Category Status Onset Date Resolution Date Last Treatment Date Treating Clinician Comments Source 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 Problem Active 06-16 00:00: 00 [facility] Lateral epicondyli tis of left humerus Lateral Epicondyli tis of Left Humerus Problem Active 08-28 00:00: 00 [facility] Swelling of finger Swelling of Finger Problem Active 06-22 00:00: 00 [facility] Increased frequency of urination Increased Frequency of Urination Problem Active 06[facility]08 [facility] Secondary erectile dysfunctio n Secondary Erectile Dysfunctio n Problem Active 06-08 00:00: 00 [facility] Diabetes mellitus Diabetes Mellitus Problem Active 06-08 00:00: 00 [facility] Nicotine dependence Nicotine dependence , cigarettes , with other nicotine-i nduced disorders Problem [facility] 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 Problem [facility] Erectile dysfunctio n Erectile dysfunctio n Problem [facility] Hyperlipid aemia Hyperlipem ia Problem [facility] [id number] Labile blood glucose Problem [facility] [id number] Benign prostatic hyperplasi a with lower urinary tract symptoms Problem [facility] [id number] Current moderate episode of major depressive disorder without prior episode Problem [facility] 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 Problem [facility] 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 Problem [facility] [id number] Type 2 diabetes mellitus with hyperglyce tone, without long-term current use of insulin Problem Common [facility] 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 Problem [facility] Secondary malignant neoplasm of lymph node 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, face and neck Problem [facility] No known active problems No known active problems Disease [facility] Allergies, Adverse Reactions, Alerts Allergy Name Allergy Type Status Severity Reaction(s) Onset Date Inactive Date Treating Clinician Comments Source No Known Allergie s DA Active [facility] Social History Social Habit Start Date Stop Date Quantity Comments Source History of Tobacco Use Current Smoker [facility] Sex Assigned At [facility] Cigarettes smoked current (pack per day) - Reported 2021-09-09 00:00:00 2021-09-09 00:00:00 [facility] Cigarette pack-years 2021-09-09 00:00:00 2021-09-09 00:00:00 [facility] Tobacco use and exposure 2021-09-09 00:00:00 2021-09-09 00:00:00 Smokeless tobacco non-user [facility] Alcohol intake 2021-09-09 00:00:00 2021-09-09 00:00:00 Lifetime non-drinker (finding) [facility] Smoking Status Start Date Stop Date Source Heavy Tobacco Smoker [facility] Tobacco smoking consumption unknown [facility] Current Smoker 2023-04-10 00:00:00 [facility] Medications Ordered Medication Name Filled Medication Name Start Date Stop Date Current Medication? Ordering Clinician Indication Dosage Frequency Signature (SIG) Comments Components Source Bactrim DS 800-160 MG Bactrim DS 800-160 MG 0 - 00:00: 00 No 1{table t} BID Bactrim DS 800-160 MG Bactrim DS 800-160 MG Bactrim DS 800-160 MG 0 8- 00:00: 00 No 1{table t} BID Bactrim DS 800-160 MG Bactrim DS 800-160 MG Bactrim DS 800-160 MG 2022-0 8- 00:00: 00 No 1{table t} BID Bactrim DS 800-160 MG Bactrim DS 800-160 MG Bactrim DS 800-160 MG 2022-0 8- 00:00: 00 No 1{table t} BID Bactrim DS 800-160 MG Bactrim DS 800-160 MG Bactrim DS 800-160 MG 2023-0 8- 00:00: 00 No 1{table t} BID Bactrim DS 800-160 MG Bactrim DS 800-160 MG Bactrim DS 800-160 MG 2023-0 8- 00:00: 00 No 1{table t} BID Bactrim DS 800-160 MG Bactrim DS 800-160 MG Bactrim DS 800-160 MG 2023-0 8- 00:00: 00 No 1{table t} BID Bactrim DS 800-160 MG Bactrim DS 800-160 MG Bactrim DS 800-160 MG 2023-0 8- 00:00: 00 No 1{table t} BID Bactrim DS 800-160 MG Bactrim DS 800-160 MG Bactrim DS 800-160 MG 2023-0 8- 00:00: 00 No 1{table t} BID Bactrim DS 800-160 MG Bactrim DS 800-160 MG Bactrim DS 800-160 MG 2023-0 8- 00:00: 00 No 1{table t} BID Bactrim DS 800-160 MG Bactrim DS 800-160 MG Bactrim DS 800-160 MG 2023-0 8- 00:00: 00 No 1{table t} BID Bactrim DS 800-160 MG Sulfamethox azole-Trime thoprim 800-160 MG Sulfamethox azole-Trime thoprim 800-160 MG 2023-0 8- 00:00: 00 No BID Sulfametho xazole-Tri methoprim 800-160 MG Sulfamethox azole-Trime thoprim 800-160 MG Sulfamethox azole-Trime thoprim 800-160 MG 2023-0 8- 00:00: 00 No BID Sulfametho xazole-Tri methoprim 800-160 MG Sulfamethox azole-Trime thoprim 800-160 MG Sulfamethox azole-Trime thoprim 800-160 MG 2023-0 8- 00:00: 00 No BID Sulfametho xazole-Tri methoprim 800-160 MG Sulfamethox azole-Trime thoprim 800-160 MG Sulfamethox azole-Trime thoprim 800-160 MG 2023-0 8- 00:00: 00 No BID Sulfametho xazole-Tri methoprim 800-160 MG Sulfamethox azole-Trime thoprim 800-160 MG Sulfamethox azole-Trime thoprim 800-160 MG 2023-0 8- 00:00: 00 No BID Sulfametho xazole-Tri methoprim 800-160 MG Sulfamethox azole-Trime thoprim 800-160 MG Sulfamethox azole-Trime thoprim 800-160 MG 3-0 8- 00:00: 00 No BID Sulfametho xazole-Tri methoprim 800-160 MG Sulfamethox azole-Trime thoprim 800-160 MG Sulfamethox azole-Trime thoprim 800-160 MG 3-0 8- 00:00: 00 No BID Sulfametho xazole-Tri methoprim 800-160 MG Sulfamethox azole-Trime thoprim 800-160 MG Sulfamethox azole-Trime thoprim 800-160 MG 3-0 8- 00:00: 00 No BID Sulfametho xazole-Tri methoprim 800-160 MG Sulfamethox azole-Trime thoprim 800-160 MG Sulfamethox azole-Trime thoprim 800-160 MG 3-0 8- 00:00: 00 No BID Sulfametho xazole-Tri methoprim 800-160 MG Sulfamethox azole-Trime thoprim 800-160 MG Sulfamethox azole-Trime thoprim 800-160 MG 3-0 8- 00:00: 00 No BID Sulfametho xazole-Tri methoprim 800-160 MG Sulfamethox azole-Trime thoprim 800-160 MG Sulfamethox azole-Trime thoprim 800-160 MG 3-0 8- 00:00: 00 No BID Sulfametho xazole-Tri methoprim 800-160 MG glipiZIDE 5 MG glipiZIDE 5 MG 2021-1 1- 00:00: 00 No BID glipiZIDE 5 MG glipiZIDE 5 MG glipiZIDE 5 MG 2021- 1- 00:00: 00 No BID glipiZIDE 5 MG glipiZIDE 5 MG glipiZIDE 5 MG 2021-03 00:00: 00 No BID glipiZIDE 5 MG No known medications 09-09 14:04: 34 No No known medication [facility] glipiZIDE-m etFORMIN HCl 5-500 MG glipiZIDE-m etFORMIN HCl 5-500 MG 2020-03 00:00: 00 No 1{table t_with_ a_meal} QD glipiZIDE- metFORMIN HCl 5-500 MG Gabapentin Gabapentin 09-15 00:00: 00 Yes Lissette Syed 1 capsule [facility] glyburide 5 mg tablet TAKE ONE (1) TABLET(S) BY MOUTH ONCE A DAY. glyburide 5 mg tablet TAKE ONE (1) TABLET(S) BY MOUTH ONCE A DAY. No glyburide 5 mg tablet TAKE ONE (1) TABLET(S) BY MOUTH ONCE A DAY. [facility] metformin ER 500 mg tablet,exte nded release 24 hr TAKE ONE (1) TABLET(S) BY MOUTH TWICE A DAY. metformin ER 500 mg tablet,exte nded release 24 hr TAKE ONE (1) TABLET(S) BY MOUTH TWICE A DAY. No metformin ER 500 mg tablet,ext ended release 24 hr TAKE ONE (1) TABLET(S) BY MOUTH TWICE A DAY. [facility] Pravastatin Sodium Pravastatin Sodium Yes Lissette Syed 1 tablet [facility] Tamsulosin HCl Tamsulosin HCl Yes Lissette Syed take one capsule by mouth once daily in evening [facility] GlyBURIDE GlyBURIDE Yes Lissette Syed TAKE TWO (2) TABLET(S) BY MOUTH TWICE A DAY WITH FOOD. [facility] Metformin HCl Metformin HCl Yes Lissette Syed TAKE ONE (1) TABLET(S) BY MOUTH TWICE A DAY WITH FOOD. [facility] glyBURIDE 5 MG glyBURIDE 5 MG No glyBURIDE 5 MG Januvia 100 MG Januvia 100 MG No 1{table t} QD Januvia 100 MG glyBURIDE 5 MG glyBURIDE 5 MG No glyBURIDE 5 MG metFORMIN HCl 1000 MG metFORMIN HCl 1000 MG No metFORMIN HCl 1000 MG Tamsulosin HCl 0.4MG Tamsulosin HCl 0.4MG No QD Tamsulosin HCl 0.4MG glipiZIDE-m etFORMIN HCl 5-500 MG glipiZIDE-m etFORMIN HCl 5-500 MG No 1{table t_with_ a_meal} BID glipiZIDE- metFORMIN HCl 5-500 MG Pravastatin Sodium 20 MG Pravastatin Sodium 20 MG No 1{table t} QD Pravastati n Sodium 20 MG Vitamin D (Ergocalcif arleen) 5000 tablets Vitamin D (Ergocalcif arleen) 5000 tablets No Vitamin D (Ergocalci ferol) 5000 tablets glyBURIDE 5 MG glyBURIDE 5 MG No glyBURIDE 5 MG Tamsulosin HCl 0.4MG Tamsulosin HCl 0.4MG No QD Tamsulosin HCl 0.4MG Vitamin D (Ergocalcif arleen) 5000 tablets Vitamin D (Ergocalcif arleen) 5000 tablets No Vitamin D (Ergocalci ferol) 5000 tablets Januvia 100 MG Januvia 100 MG No 1{table t} QD Januvia 100 MG metFORMIN HCl 1000 MG metFORMIN HCl 1000 MG No metFORMIN HCl 1000 MG glipiZIDE-m etFORMIN HCl 5-500 MG glipiZIDE-m etFORMIN HCl 5-500 MG No 1{table t_with_ a_meal} BID glipiZIDE- metFORMIN HCl 5-500 MG Pravastatin Sodium 20 MG Pravastatin Sodium 20 MG No 1{table t} QD Pravastati n Sodium 20 MG glyBURIDE 5 MG glyBURIDE 5 MG No glyBURIDE 5 MG Tamsulosin HCl 0.4MG Tamsulosin HCl 0.4MG No QD Tamsulosin HCl 0.4MG Vitamin D (Ergocalcif arleen) 5000 tablets Vitamin D (Ergocalcif arleen) 5000 tablets No Vitamin D (Ergocalci ferol) 5000 tablets Januvia 100 MG Januvia 100 MG No 1{table t} QD Januvia 100 MG metFORMIN HCl 1000 MG metFORMIN HCl 1000 MG No metFORMIN HCl 1000 MG glipiZIDE-m etFORMIN HCl 5-500 MG glipiZIDE-m etFORMIN HCl 5-500 MG No 1{table t_with_ a_meal} BID glipiZIDE- metFORMIN HCl 5-500 MG Pravastatin Sodium 20 MG Pravastatin Sodium 20 MG No 1{table t} QD Pravastati n Sodium 20 MG Vitamin D (Ergocalcif arleen) 5000 tablets Vitamin D (Ergocalcif arleen) 5000 tablets No Vitamin D (Ergocalci ferol) 5000 tablets Januvia 100 MG Januvia 100 MG No 1{table t} QD Januvia 100 MG Tamsulosin HCl 0.4MG Tamsulosin HCl 0.4MG No QD Tamsulosin HCl 0.4MG glipiZIDE-m etFORMIN HCl 5-500 MG glipiZIDE-m etFORMIN HCl 5-500 MG No 1{table t_with_ a_meal} BID glipiZIDE- metFORMIN HCl 5-500 MG glyBURIDE 5 MG glyBURIDE 5 MG No glyBURIDE 5 MG Pravastatin Sodium 20 MG Pravastatin Sodium 20 MG No 1{table t} QD Pravastati n Sodium 20 MG metFORMIN HCl 1000 MG metFORMIN HCl 1000 MG No metFORMIN HCl 1000 MG glipiZIDE-m etFORMIN HCl 5-500 MG glipiZIDE-m etFORMIN HCl 5-500 MG No 1{table t_with_ a_meal} BID glipiZIDE- metFORMIN HCl 5-500 MG glipiZIDE-m etFORMIN HCl 5-500 MG glipiZIDE-m etFORMIN HCl 5-500 MG No 1{table t_with_ a_meal} BID glipiZIDE- metFORMIN HCl 5-500 MG glipiZIDE-m etFORMIN HCl 5-500 MG glipiZIDE-m etFORMIN HCl 5-500 MG No 1{table t_with_ a_meal} BID glipiZIDE- metFORMIN HCl 5-500 MG glipiZIDE-m etFORMIN HCl 5-500 MG glipiZIDE-m etFORMIN HCl 5-500 MG No 1{table t_with_ a_meal} BID glipiZIDE- metFORMIN HCl 5-500 MG glipiZIDE-m etFORMIN HCl 5-500 MG glipiZIDE-m etFORMIN HCl 5-500 MG No 1{table t_with_ a_meal} BID glipiZIDE- metFORMIN HCl 5-500 MG glipiZIDE-m etFORMIN HCl 5-500 MG glipiZIDE-m etFORMIN HCl 5-500 MG No 1{table t_with_ a_meal} BID glipiZIDE- metFORMIN HCl 5-500 MG glipiZIDE-m etFORMIN HCl 5-500 MG glipiZIDE-m etFORMIN HCl 5-500 MG No 1{table t_with_ a_meal} BID glipiZIDE- metFORMIN HCl 5-500 MG glipiZIDE-m etFORMIN HCl 5-500 MG glipiZIDE-m etFORMIN HCl 5-500 MG No 1{table t_with_ a_meal} BID glipiZIDE- metFORMIN HCl 5-500 MG glipiZIDE-m etFORMIN HCl 5-500 MG glipiZIDE-m etFORMIN HCl 5-500 MG No 1{table t_with_ a_meal} BID glipiZIDE- metFORMIN HCl 5-500 MG glipiZIDE-m etFORMIN HCl 5-500 MG glipiZIDE-m etFORMIN HCl 5-500 MG No 1{table t_with_ a_meal} BID glipiZIDE- metFORMIN HCl 5-500 MG glipiZIDE-m etFORMIN HCl 5-500 MG glipiZIDE-m etFORMIN HCl 5-500 MG No 1{table t_with_ a_meal} BID glipiZIDE- metFORMIN HCl 5-500 MG glipiZIDE-m etFORMIN HCl 5-500 MG glipiZIDE-m etFORMIN HCl 5-500 MG No 1{table t_with_ a_meal} BID glipiZIDE- metFORMIN HCl 5-500 MG glipiZIDE-m etFORMIN HCl 5-500 MG glipiZIDE-m etFORMIN HCl 5-500 MG No 1{table t_with_ a_meal} BID glipiZIDE- metFORMIN HCl 5-500 MG glipiZIDE-m etFORMIN HCl 5-500 MG glipiZIDE-m etFORMIN HCl 5-500 MG No 1{table t_with_ a_meal} BID glipiZIDE- metFORMIN HCl 5-500 MG Tamsulosin HCl 0.4MG Tamsulosin HCl 0.4MG No QD Tamsulosin HCl 0.4MG metFORMIN HCl 1000 MG metFORMIN HCl 1000 MG No metFORMIN HCl 1000 MG Pravastatin Sodium 20 MG Pravastatin Sodium 20 MG No 1{table t} QD Pravastati n Sodium 20 MG Trulicity 1.5 MG/0.5ML Trulicity 1.5 MG/0.5ML No Trulicity 1.5 MG/0.5ML Januvia 100 MG Januvia 100 MG No 1{table t} QD Januvia 100 MG Vitamin D (Ergocalcif arleen) 5000 tablets Vitamin D (Ergocalcif arleen) 5000 tablets No Vitamin D (Ergocalci ferol) 5000 tablets Immunizations Ordered Immunization Name Filled Immunization Name Date Status Comments Source influenza, injectable, quadrivalent influenza, injectable, quadrivalent Unknown Completed [facility] Vital Signs Vital Name Observation Time Observation Value Comments S ource BP Diastolic 2023-09-03 00:00:00 92 mm[Hg] [facility] Height 2023-09-03 00:00:00 67 [in_i] [facility] BP Systolic 2023-09-03 00:00:00 158 mm[Hg] [facility] BP Systolic 2023-06-17 00:00:00 144 mm[Hg] [facility] Height 2023-06-17 00:00:00 67 [in_i] [facility] BP Diastolic 2023-06-17 00:00:00 80 mm[Hg] [facility] height 2023-03-02 09:40:00 67 [in_i] [facility] weight 2023-03-02 09:40:00 141.8 [lb_av] Co mmon [facility] temperature 2023-03-02 09:40:00 97.8 [degF] Com mon [facility] bmi 2023-03-02 09:40:00 22.21 kg/m2 Comm on [facility] oximetry 2023-03-02 09:40:00 99 % Commo n [facility] respiratory rate 2023-03-02 09:40:00 16 /min [facility] blood pressure systolic 2023-03-02 09:40:00 139 mm[Hg] [facility] blood pressure diastolic 2023-03-02 09:40:00 69 mm[Hg] Common [facility] height 2022-10-28 13:20:00 67 [in_i] Commo n [facility] weight 2022-10-28 13:20:00 139.4 [lb_av] Co mmon [facility] temperature 2022-10-28 13:20:00 98.0 [degF] Com [facility] bmi 2022-10-28 13:20:00 21.83 kg/m2 Comm on [facility] oximetry 2022-10-28 13:20:00 95 % Commo n [facility] respiratory rate 2022-10-28 13:20:00 16 /min [facility] blood pressure systolic 2022-10-28 13:20:00 138 mm[Hg] [facility] blood pressure diastolic 2022-10-28 13:20:00 79 mm[Hg] Common [facility] height 2022-08-20 14:00:00 67 [in_i] Commo n [facility] weight 2022-08-20 14:00:00 139.8 [lb_av] Co mmon [facility] temperature 2022-08-20 14:00:00 97.1 [degF] Com [facility] bmi 2022-08-20 14:00:00 21.89 kg/m2 Comm on [facility] oximetry 2022-08-20 14:00:00 98 % Commo n [facility] respiratory rate 2022-08-20 14:00:00 16 /min Common [facility] blood pressure systolic 2022-08-20 14:00:00 120 mm[Hg] [facility] blood pressure diastolic 2022-08-20 14:00:00 80 mm[Hg] Common [facility] height 2022-06-04 13:00:00 67 [in_i] Commo n [facility] weight 2022-06-04 13:00:00 138.6 [lb_av] Co mmon [facility] temperature 2022-06-04 13:00:00 98.3 [degF] Com mon [facility] bmi 2022-06-04 13:00:00 21.71 kg/m2 Comm on [facility] oximetry 2022-06-04 13:00:00 98 % Commo n [facility] respiratory rate 2022-06-04 13:00:00 16 /min Common [facility] blood pressure systolic 2022-06-04 13:00:00 138 mm[Hg] [facility] blood pressure diastolic 2022-06-04 13:00:00 82 mm[Hg] [facility] height 2022-01-29 13:00:00 67 [in_i] Commo n [facility] weight 2022-01-29 13:00:00 138 [lb_av] Comm on [facility] temperature 2022-01-29 13:00:00 97.8 [degF] Com [facility] bmi 2022-01-29 13:00:00 21.61 kg/m2 Comm on [facility] oximetry 2022-01-29 13:00:00 97 % Commo n [facility] respiratory rate 2022-01-29 13:00:00 17 /min [facility] blood pressure systolic 2022-01-29 13:00:00 134 mm[Hg] [facility] blood pressure diastolic 2022-01-29 13:00:00 79 mm[Hg] [facility] height 2021-09-09 18:59:00 172.7 cm [facility] weight 2021-09-09 18:59:00 61.236 kg [facility] BMI 2021-09-09 18:59:00 20.53 kg/m2 [facility] height 2021-08-20 09:00:00 67 [in_i] Commo n [facility] weight 2021-08-20 09:00:00 138.8 [lb_av] Co mmon [facility] temperature 2021-08-20 09:00:00 97.7 [degF] Com mon [facility] bmi 2021-08-20 09:00:00 21.74 kg/m2 Comm on [facility] oximetry 2021-08-20 09:00:00 99 % Commo n [facility] respiratory rate 2021-08-20 09:00:00 18 /min Common [facility] blood pressure systolic 2021-08-20 09:00:00 132 mm[Hg] [facility] blood pressure diastolic 2021-08-20 09:00:00 82 mm[Hg] Common [facility] height 2021-03-11 15:20:00 67 [in_i] Commo n [facility] weight 2021-03-11 15:20:00 142.8 [lb_av] Co mmon [facility] temperature 2021-03-11 15:20:00 97.9 [degF] Com [facility] bmi 2021-03-11 15:20:00 22.36 kg/m2 Comm on [facility] oximetry 2021-03-11 15:20:00 97 % Commo n [facility] respiratory rate 2021-03-11 15:20:00 16 /min Common [facility] blood pressure systolic 2021-03-11 15:20:00 136 mm[Hg] [facility] blood pressure diastolic 2021-03-11 15:20:00 78 mm[Hg] Common [facility] height 2020-11-23 11:20:00 67 [in_i] Commo n [facility] weight 2020-11-23 11:20:00 151 [lb_av] Comm on [facility] temperature 2020-11-23 11:20:00 98.4 [degF] Com mon [facility] bmi 2020-11-23 11:20:00 23.65 kg/m2 Comm on [facility] Procedures Procedure Date / Time Performed Performing Clinicia n Source CT, abdomen + pelvis, w/o contrast 2023-09-03 00:00:00 [facility] Insertion of Feeding Tube into Duodenum [facility] Biopsy of Tonsil [facility] Hernia Repair [facility] [place] Ear Tube [facility] Encounters Start Date/Time End Date/Time Encounter Type Admission Type Attending Clinicians Care Facility Care Department Encounter ID Source 2023-04-09 09:09:00 Outpatient RissaAilene [facility] [id number] [facility] 2023-04-01 11:22:00 Outpatient MaderaAileen benavides [facility] [id number] [facility] 2023-03-02 09:44:00 Outpatient RissaAileen [facility] [id number] [facility] 2022-10-28 12:52:00 Outpatient MaderaAileen benavides [facility] [id number] [facility] 2022-10-27 13:24:00 Outpatient MaderaAileen benavides [facility] [id number] [facility] 2022-08-18 14:57:00 Outpatient RissaAileen [facility] ST[facility] [id number] [facility] 2022-06-02 13:47:00 Outpatient MaderaAileen benavides [facility] ST[facility] [id number] [facility] 2022-05-08 15:55:59 Outpatient [facility] [id number] [facility] 2022-04-30 09:43:01 Outpatient MaderaAileen benavides [facility] ST[facility] [id number] [facility] 2022-01-29 13:03:01 Outpatient RissaAileen [facility] [id number] [facility] 2022-01-14 07:34:00 Outpatient MaderaAileen benavides [facility] [id number] [facility] 2021-12-05 10:26:00 Outpatient MaderaAileen benavides [facility] [id number] [facility] 2021-11-14 11:04:00 Outpatient MaderaAileen benavides [facility] [id number] [facility] 2021-08-21 11:28:00 Outpatient MaderaAileen benavides [facility] [id number] [facility] 2021-05-23 13:52:01 Outpatient MaderaAileen benavides [facility] [id number] [facility] 2021-04-24 14:24:55 Outpatient MaderaAileen benavides [facility] [id number] [facility] 2021-04-24 13:26:48 Outpatient MaderaAileen benavides [facility] ST[facility] [id number] [facility] 2021-04-24 13:09:59 Outpatient Aileen Kwok [facility] [id number] [facility] 2021-04-24 12:24:06 Outpatient Aileen Kwok [facility] [id number] [facility] 2021-04-24 12:08:45 Outpatient MaderaAileen benavides [facility] [id number] [facility] 2021-04-24 12:07:09 Outpatient MaderaLorie benavidesa STL[facility]C ST[facility] [id number] [facility] 2021-04-24 12:03:10 Outpatient MaderaAileen benavides [facility] ST[facility] [id number] [facility] 2021-04-24 11:52:54 Outpatient MaderaAileen benavides [facility] [id number] [facility] 2021-04-24 11:48:59 [facility] [id number] [facility] 2021-04-24 11:48:19 Out[facility] [id number] [facility] 2021-04-24 11:05:15 Outpatient Mad[facility]Aileen benavides [facility] [id number] [facility] 2021-04-24 11:04:26 [facility] [id number] [facility] 2020-10-26 16:11:46 Outpatient SYSTEM, PROVIDER LEESA [facility]ERS [id number] MD Azalia dailey 2023-09-03 00:00:00 2023-09-03 00:00:00 CHAUNCEY ValentinP-C: [address] [place] [address] , Ph. [facility], YUNIER [facility]IL[facility]- [id number] [facility] 2023-06-17 00:00:00 2023-06-17 00:00:00 Outpatient ROUSE_F [facility] [id number] [facility] 2023-06-17 00:00:00 2023-06-17 00:00:00 CHAUNCEY ValentinP-C: [address] [place] [address] , Ph. [phone] [facility], DR. HAMMONDS [id number] [facility] 2023-05-01 00:00:00 2023-05-01 00:00:00 (TEL) [facility] [id number] [facility] 2023-04-30 00:00:00 2023-04-30 00:00:00 Outpatient ROUSE_F [facility] [id number] 201 [address]lee [address] [facility] 2023-04-21 00:00:00 2023-04-21 00:00:00 (TEL) STLMLC STLMLC [id number] [facility] 2023-04-09 00:00:00 2023-04-09 00:00:00 (TEL) STLMLC STLMLC [id number] [facility] 2023-03-02 00:00:00 2023-03-02 00:00:00 OFFICE VISIT ESTAB PT LEVEL 3 STLMLC STLMLC [id number] [facility] 2022-10-29 00:00:00 2022-10-29 00:00:00 (TEL) STLMLC STLMLC [id number] [facility] 2022-10-28 00:00:00 2022-10-28 00:00:00 OFFICE VISIT ESTAB PT LEVEL 3 STLMLC STLMLC [id number] [facility] 2022-08-20 00:00:00 2022-08-20 00:00:00 OFFICE VISIT ESTAB PT LEVEL 3 STLMLC STLMLC [id number] [facility] 2022-08-19 00:00:00 2022-08-19 00:00:00 (TEL) STLMLC STLMLC [id number] [facility] 2022-06-17 00:00:00 2022-06-17 00:00:00 (TEL) STLMLC STLMLC [id number] [facility] 2022-06-04 00:00:00 2022-06-04 00:00:00 OFFICE VISIT ESTAB PT LEVEL 4 STLMLC STLMLC [id number] [facility] 2022-05-08 00:00:00 2022-05-08 00:00:00 (TEL) STLMLC STLMLC [id number] [facility] 2022-05-08 00:00:00 2022-05-08 00:00:00 (TEL) STLMLC STLMLC [id number] [facility] 2022-04-28 00:00:00 2022-04-28 00:00:00 (TEL) STLMLC STLMLC [id number] [facility] 2022-01-31 00:00:00 2022-01-31 00:00:00 (TEL) STLMLC STLMLC [id number] [facility] 2022-01-29 00:00:00 2022-01-29 00:00:00 OFFICE VISIT ESTAB PT LEVEL 4 STLMLC STLC [id number] [facility] 2021-11-11 08:30:00 2021-11-11 08:30:00 Outpatient [facility] [place] [id number] [facility] 2021-10-21 08:45:00 2021-10-21 08:45:00 Outpatient [facility] [place] [id number] [facility] 2021-10-07 00:00:00 2021-10-07 00:00:00 (TEL) STLC STLC [id number] [facility] 2021-09-09 14:30:00 2021-09-09 14:54:09 Office Visit [place] [facility] [address] [id number] [facility] 2021-08-27 00:00:00 2021-08-27 00:00:00 Telephone [place] [facility] [address] [id number] [facility] 2021-08-20 00:00:00 2021-08-20 00:00:00 PREV VISIT EST AGE 40-64 STLMLC STLMLC [id number] [facility] 2021-08-19 00:00:00 2021-08-19 00:00:00 (TEL) STLMLC STLMLC [id number] [facility] 2021-03-11 00:00:00 2021-03-11 00:00:00 OFFICE VISIT ESTAB PT LEVEL 4 STLMLC STLMLC [id number] [facility] 2020-11-23 00:00:00 2020-11-23 00:00:00 OFFICE VISIT EST PT LEVEL 3 STLMLC STLMLC [id number] [facility] 2020-11-20 00:00:00 2020-11-20 00:00:00 (TEL) STLMLC STLMLC [id number] [facility] 2020-11-07 00:00:00 2020-11-07 00:00:00 (TEL) STLMLC STLMLC [id number] [facility] 2020-10-16 05:21:00 2020-10-16 05:21:00 Outpatient [facility] [id number] [facility] 2020-10-08 00:00:00 2020-10-08 00:00:00 (TEL) STLMLC STLMLC [id number] [facility] 2020-08-31 00:00:00 2020-08-31 00:00:00 Outpatient STLMLC STLMLC [id number] [facility] 2020-08-07 00:00:00 2020-08-07 00:00:00 Outpatient STLMLC STLMLC [id number] [facility] 2020-05-31 00:00:00 2020-05-31 00:00:00 Outpatient STLMLC STLMLC [id number] [facility] 2020-03-01 00:00:00 2020-03-01 00:00:00 Outpatient STLMLC STLMLC [id number] [facility] 2020-02-02 00:00:00 2020-02-02 00:00:00 Outpatient STLMLC STLMLC [id number] [facility] 2020-01-25 00:00:00 2020-01-25 00:00:00 Outpatient STLMLC STLMLC [id number] [facility] 2020-01-24 00:00:00 2020-01-24 00:00:00 Outpatient STLMLC STLMLC [id number] [facility] 2020-01-13 00:00:00 2020-01-13 00:00:00 Outpatient STLMLC STLMLC [id number] [facility] 2020-01-05 00:00:00 2020-01-05 00:00:00 Outpatient STLMLC STLMLC [id number] [facility] 2019-12-29 00:00:00 2019-12-29 00:00:00 Outpatient STLMLC STLMLC [id number] [facility] 2019-12-26 00:00:00 2019-12-26 00:00:00 Outpatient STLMLC STLMLC [id number] [facility] 2019-12-26 00:00:00 2019-12-26 00:00:00 Outpatient STLMLC STLMLC [id number] [facility] 2019-04-28 13:20:00 2019-04-28 13:20:[address] [facility] [id number] [facility] 2018-11-12 08:40:00 2018-11-12 08:40:00 [facility] [facility] [id number] [facility] 2018-07-06 08:40:00 2018-07-06 08:40:[address] [facility] [id number] [facility] 2018-05-13 10:30:00 2018-05-13 10:30:[address] [facility] [id number] [facility] 2018-04-28 14:53:00 2018-04-28 14:53:[address] [facility] [id number] [facility] 2017-09-15 15:30:00 2017-09-15 15:30:[address] [facility] [id number] [facility] Results Test Description Test Time Test Comments Results Result Co mments Source HEMOGLOBIN [id number] 00:00:00* Test Item Value Reference Range Interpretation Comme nts A1C (test code = 4548-4) 7.6 HEMOGLOBIN [id number] 00:00:00* Test Item Value Reference Range Interpretation Comme nts A1C (test code = 4548-4) 7.8
--- NOTE | 2023-10-07 13:58 | RAD REPORT ---
EXAM DESCRIPTION: CTStone Protocol - 10/07/2023 1:40 pm CLINICAL HISTORY: FLANK PAIN COMPARISON: CT ABD PELVIS W CONTRAST dated 09/12/2014 TECHNIQUE: CT of the abdomen and pelvis was performed. All CT scans are performed using dose optimization technique as appropriate and may include automated exposure control or mA/KV adjustment according to patient size. FINDINGS: Lower chest: No acute abnormality. Liver: No acute abnormality or suspicious lesions. Biliary: No biliary ductal dilatation. Stomach: No significant focal abnormality. Duodenum: No significant focal abnormality. Pancreas: No significant abnormality. Spleen: No significant abnormality. Adrenal: No suspicious lesions. Kidney/ureter: No hydronephrosis. Punctate stone in left kidney. No ureteral calculi. Retroperitoneum: No retroperitoneal adenopathy. Vascular: No aneurysm. Atherosclerosis. Bowel: No significant focal abnormality. No hydronephrosis. Peritoneum: No ascites or free air. 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 This is separate from the left ur eter. Reproductive: No adnexal masses. Bones: No acute fracture. Other: n/a IMPRESSION: No acute intra-abdominal or pelvic finding. Nonobstructive left nephrolithiasis. No uret eral calculi or hydronephrosis.
[2023-10-07] MEDS ORDERED: NA CHLORIDE 0.9% 500 ML ONE ×2 (14:26→17:40)
[2023-10-07 14:39] LABS: Absolute Basophils 0.1 K/uL (0-0.5); Absolute Eosinophils 0.1 K/uL (0-0.5); Absolute Lymphocytes (CBC) 1.3 K/uL (0.7-4.9); Absolute Monocytes 0.6 K/uL (0.1-1.3); Absolute Neutrophil 4.8 K/uL (1.8-8.0); Basophils % 0.9 % (0-1.3); Eosinophils % 2.1 % (0-4.4); Hematocrit 49.3 % (39.6-49.0); Hemoglobin 17.1 g/dL (13.6-17.9); Lymphocytes % 19.4 % (15.3-44.8); MCH 31.6 pg (27.0-35.0); MCHC 34.8 g/dL (32.0-36.0); MCV 90.9 fL (80-100); MPV 8.3 fL (7.6-11.3); Monocytes % 8.3 % (3.3-12.3); Neutrophils % 69.3 % (41.7-73.7); Nucleated Red Blood Cells % 0.1 % (0-0); Platelets 164 thou/uL (152-406); RBC Red Blood Cell Count 5.43 M/uL (4.33-5.43); Red Cell Distribution Width 14.8 % (12.1-15.2)
[2023-10-07 15:04] LABS: Albumin 4.1 g/dL (3.4-5.0); Albumin/Globulin Ratio 1.1 (1.1-1.8); Alkaline Phosphatase 71 U/L (45-117); Anion Gap 4.1 mEq/L (5.0-15.0); BUN Blood Urea Nitrogen 18 mg/dL (7-18); Bicarbonate 32 mEq/L (21-32); Globulin 3.6 g/dL (2.3-3.5); Glomerular Filtration Rate 96 ml/min (=/>90); Glucose Level 235 mg/dL (74-106); Potassium 4.1 mEq/L (3.5-5.1); Protein, Total 7.7 g/dL (6.4-8.2); Sodium Level 137 mEq/L (136-145)
[2023-10-07 15:20] LABS: Specific Gravity 1.026 (1.005-1.030); Urine Bacteria <20 /HPF (<20); Urine Bilirubin NEGATIVE (Negative); Urine Blood 3+ (OVER) (Negative); Urine Clarity Extremely Turbid (Clear); Urine Color Light-Orange (Yellow); Urine Culture Reflex Order NOT NEEDED; Urine Glucose 4+ (Negative); Urine Ketones 1+ (Negative); Urine Microscopic Reflex YN ORDER UMIC; Urine Mucus Slight /HPF (None Seen); Urine Nitrite NEGATIVE (Negative); Urine Protein 2+ (Negative); Urine RBC >50 /HPF (None Seen); Urine Urobilinogen 1+ (Normal); Urine Yeast (Budding) Many /HPF (None Seen)
[2023-10-07 15:23] LABS: ALT/SGPT < 14 U/L (16-61); AST/SGOT < 10 U/L (15-37)
[2023-10-07] MEDS ORDERED: TAMSULOSIN 0.4 MG SR CAP ONE (17:40)
[2023-10-07] MEDS ORDERED: CEFTRIAXONE 1000 MG/VIAL ONE (17:40)
--- NOTE | 2023-10-07 17:46 | EDPHYS ---
Physician Documentation [facility] Name: Wayne Billy Age: 62 yrs Sex: Male : 1960 Arrival Date: 10/07/2023 Time: 13:07 Bed 16 Private MD: Derrell Ruiz HPI: 10/06 17:39 This 62 yrs old Male presents to ER via Ambulatory with complaints of Urinary rebecca Problem. 17:39 The patient presents with urinary symptoms, urinary frequency, mhematuria. Onset: The rebecca symptoms/episode began/occurred 14 day(s) ago. Modifying factors: The symptoms are alleviated by nothing, the symptoms are aggravated by nothing. Associated signs and symptoms: The patient has no apparent associated signs or symptoms. Severity of symptoms: At their worst the symptoms were moderate, in the emergency department the symptoms have improved, mildly. The patient has experienced similar episodes in the past, a few times. Historical: - Allergies: 13:36 No Known Allergies; jl7 - PMHx: 13:36 Completed Radiation and Chemotherapy; Diabetes - NIDDM; Neck Cancer; Tonsill Cancer; jl7 - PSHx: 13:36 PEG tube and reversal; Tonsillectomy; jl7 - Immunization history:: Adult Immunizations unknown. - Infectious Disease History:: Denies. - Social history:: Smoking status: Patient/guardian denies using tobacco, the patient reports quitting approximately 1 years ago. - Family history:: not pertinent. ROS: 17:39 Constitutional: Negative for fever, chills, and weight loss, Eyes: Negative for injury, rebecca pain, redness, and discharge, ENT: Negative for injury, pain, and discharge, Neck: Negative for injury, pain, and swelling, Cardiovascular: Negative for chest pain, palpitations, and edema, Respiratory: Negative for shortness of breath, cough, wheezing, and pleuritic chest pain, Abdomen/GI: Negative for abdominal pain, nausea, vomiting, diarrhea, and constipation, Back: Negative for injury and pain, MS/Extremity: Negative for injury and deformity, Skin: Negative for injury, rash, and discoloration, Neuro: Negative for headache, weakness, numbness, tingling, and seizure, Psych: Negative for depression, anxiety, suicide ideation, homicidal ideation, and hallucinations, Allergy/Immunology: Negative for hives, rash, and allergies, Endocrine: Negative for neck swelling, polydipsia, polyuria, polyphagia, and marked weight changes, 17:39 : Positive for urinary frequency, hematuria, Exam: 17:39 Constitutional: This is a well developed, well nourished patient who is awake, alert, rebecca and in no acute distress. Head/Face: Normocephalic, atraumatic. Eyes: Pupils equal round and reactive to light, extra-ocular motions intact. Lids and lashes normal. Conjunctiva and sclera are non-icteric and not injected. Cornea within normal limits. Periorbital areas with no swelling, redness, or edema. ENT: Nares patent. No nasal discharge, no septal abnormalities noted. Tympanic membranes are normal and external auditory canals are clear. Oropharynx with no redness, swelling, or masses, exudates, or evidence of obstruction, uvula midline. Mucous membranes moist. Neck: Trachea midline, no thyromegaly or masses palpated, and no cervical lymphadenopathy. Supple, full range of motion without nuchal rigidity, or vertebral point tenderness. No Meningismus. Chest/axilla: Normal chest wall appearance and motion. Nontender with no deformity. No lesions are appreciated. Cardiovascular: Regular rate and rhythm with a normal S1 and S2. No gallops, murmurs, or rubs. Normal PMI, no JVD. No pulse deficits. Respiratory: Lungs have equal breath sounds bilaterally, clear to auscultation and percussion. No rales, rhonchi or wheezes noted. No increased work of breathing, no retractions or nasal flaring. Abdomen/GI: Soft, non-tender, with normal bowel sounds. No distension or tympany. No guarding or rebound. No evidence of tenderness throughout. Back: No spinal tenderness. No costovertebral tenderness. Full range of motion. Skin: Warm, dry with normal turgor. Normal color with no rashes, no lesions, and no evidence of cellulitis. MS/ Extremity: Pulses equal, no cyanosis. Neurovascular intact. Full, normal range of motion. Neuro: Awake and alert, GCS 15, oriented to person, place, time, and situation. Cranial nerves II-XII grossly intact. Motor strength 5/5 in all extremities. Sensory grossly intact. Cerebellar exam normal. Normal gait. Psych: Awake, alert, with orientation to person, place and time. Behavior, mood, and affect are within normal limits. 17:39 : CVA tenderness, is absent, Male external genitalia: normal, Bladder: is normal, Vital Signs: 13:32 BP 166 / 90; Pulse 96; Resp 16; Temp 98.7(TE); Pulse Ox 97% on R/A; Weight 62.6 kg; jl7 Height 5 ft. 8 in. ; Pain 0/10; 17:13 BP 133 / 97; Pulse 90; Resp 18; Pulse Ox 100% on R/A; mb9 13:32 Body Mass Index 20.98 (62.60 kg, 172.72 cm) [facility] 13:32 Pain Scale: Adult jl7 MDM: 13:22 Patient medically screened. [facility] 17:42 Differential diagnosis: nonspecific abdominal pain, UTI, urinary retention, rebecca prostatitis, urethritis. Data reviewed: vital signs, nurses notes, lab test result(s), radiologic studies, CT scan. Consideration of Admission/Observation Escalation of care including admission/observation considered. I considered the following discharge prescriptions or medication management in the emergency department Medications were administered in the Emergency Department. See MAR. Independent interpretation of the following test(s) in the Emergency Department CT Scan: My interpretation is ct stone. Test considered but Not performed: Ultrasound no renal usg. Historians other than the Patient: pt very well informed. Care significantly affected by the following chronic conditions: Diabetes, Cancer, neck, tonsil cancer. Counseling: I had a detailed discussion with the patient and/or guardian regarding the historical points, exam findings, and any diagnostic results supporting the discharge/admit diagnosis, lab results, the need for outpatient follow up, for definitive care, a family practitioner, a urologist. 10/06 13:23 Order name: CBC with Diff; Complete Time: 17:07 [facility] 10/06 13:23 Order name: Comprehensive Metabolic Panel; Complete Time: 17: [facility] 10/06 13:23 Order name: Urinalysis w/ reflexes; Complete Time: 17: [facility] 10/06 13:23 Order name: CT Stone Protocol; Complete Time: 17:07 [facility] Administered Medications: 14:37 Drug: NS 0.9% IV 500 ml IV at bolus continuous Route: IV; Rate: bolus; Site: left mb9 forearm; 15:26 Follow up: Response: No adverse reaction; IV Status: Completed infusion mb9 17:45 Drug: NS 0.9% IV 500 ml IV at bolus once Route: IV; Rate: bolus; Site: left forearm; mb9 18:09 Follow up: Response: No adverse reaction; IV Status: Completed infusion mb9 17:45 Drug: Flomax PO 0.4 mg PO once Route: PO; mb9 17:54 Follow up: Response: No adverse reaction mb9 17:45 Drug: Rocephin IV 1 grams IV at per protocol once; Given slow IV push per pharmacy mb9 instructions Route: IV; Rate: per protocol; Site: left forearm; 18:09 Follow up: Response: No adverse reaction; IV Status: Completed infusion mb9 17:51 Drug: Ciprofloxacin PO 500 mg PO once Route: PO; mb9 17:54 Follow up: Response: No adverse reaction mb9 Disposition Summary: 10/07/23 17:46 Discharge Ordered Notes: Location: Home rebecca Problem: new rebecca Symptoms: have improved rebecca Condition: Stable rebecca Diagnosis - Hematuria, unspecified rebecca - Acute cystitis with hematuria rebecca - Type 2 diabetes mellitus with hyperglycemia rebecca Followup: rebecca - With: Private Physician - When: 2 - 3 days - Reason: Recheck today's complaints, Continuance of care, Re-evaluation by your physician Followup: rebecca - With: Michael Mccarthy MD - When: 2 - 3 days - Reason: Recheck today's complaints, Re-evaluation by your physician Discharge Instructions: - Discharge Summary Sheet rebecca - Hematuria, Adult rebecca - Urinary Tract Infection, Adult rebecca - Diabetes Mellitus and Nutrition, Adult rebecca Forms: - Medication Reconciliation Form rebecca - Antibiotic Education rebecca - Prescription Opioid Use rebecca - Patient Portal Instructions [facility] - Leadership Thank You Letter [facility] Prescriptions: - Flomax 0.4 mg Oral capsule - take 1 capsule ORAL route every day at bedtime; 30 capsule; Refills: 0, Product [facility] Selection Permitted - Cipro 250 mg Oral tablet - take 1 tablet ORAL route every 12 hours; 14 tablet; Refills: 0, Product [facility] Selection Permitted Signatures: Dispatcher [employer] Derrell Urbina MD MD cha Leal, Jahala RN RN jl7 Nancy Fernando RN RN mb9
--- NOTE | 2023-10-07 17:46 | ER ---
Nurse's Notes [facility] Name: Wayne Billy Age: 62 yrs Sex: Male : 1960 Arrival Date: 10/07/2023 Time: 13:07 Bed 16 Private MD: Diagnosis: Hematuria, unspecified;Acute cystitis with hematuria;Type 2 diabetes mellitus with hyperglycemia Presentation: 10/06 13:32 Chief complaint: Patient states: Pt states approx 2 hours ago and urinated blood. Pt jl7 denies pain, dysuria, fever/chills. Pt has not urinated since event. Coronavirus screen: At this time, the client does not indicate any symptoms associated with coronavirus-19. Ebola Screen: No symptoms or risks identified at this time. Initial Sepsis Screen: Does the patient meet any 2 criteria? No. Patient's initial sepsis screen is negative. Does the patient have a suspected source of infection? No. Patient's initial sepsis screen is negative. Risk Assessment: Do you want to hurt yourself or someone else? Patient reports no desire to harm self or others. Onset of symptoms was October 07, 2023 at 11:00. 13:32 Method Of Arrival: Ambulatory [facility] 13:32 Acuity: CRISTAL 3 jl7 Triage Assessment: 13:36 General: Appears in no apparent distress. Behavior is calm, cooperative. Pain: Denies jl7 pain. EENT: No signs and/or symptoms were reported regarding the EENT system. Neuro: Level of Consciousness is awake, alert, obeys commands, Oriented to person, place, time, situation, Moves all extremities. Full function Gait is steady, Speech is normal. Cardiovascular: Capillary refill < 3 seconds Patient's skin is warm and dry. Respiratory: Airway is patent Respiratory effort is even, unlabored, Respiratory pattern is regular, symmetrical. GI: No signs and/or symptoms were reported involving the gastrointestinal system. : Reports urinating blood. Derm: No signs and/or symptoms reported regarding the dermatologic system. Musculoskeletal: No signs and/or symptoms reported regarding the musculoskeletal system. Historical: - Allergies: 13:36 No Known Allergies; jl7 - PMHx: 13:36 Completed Radiation and Chemotherapy; Diabetes - NIDDM; Neck Cancer; Tonsill Cancer; jl7 - PSHx: 13:36 PEG tube and reversal; Tonsillectomy; jl7 - Immunization history:: Adult Immunizations unknown. - Infectious Disease History:: Denies. - Social history:: Smoking status: Patient/guardian denies using tobacco, the patient reports quitting approximately 1 years ago. - Family history:: not pertinent. Screenin:36 [facility] ED Fall Risk Assessment (Adult) History of falling in the last 3 months, mb9 including since admission No falls in past 3 months (0 pts) Confusion or Disorientation No (0 pts) Intoxicated or Sedated No (0 pts) Impaired Gait No (0 pts) Mobility Assist Device Used No (0 pt) Altered Elimination No (0 pt) Score/Fall Risk Level 0 - 2 = Low Risk Oriented to surroundings, Maintained a safe environment, Educated pt \T\ family on fall prevention, incl call for assistance when getting out of bed. Abuse screen: Denies threats or abuse. Nutritional screening: No deficits noted. Tuberculosis screening: No symptoms or risk factors identified. Assessment: 14:35 General: Appears in no apparent distress. Behavior is calm, cooperative. Pain: Denies mb9 pain. Neuro: Level of Consciousness is awake, alert, obeys commands, Oriented to person, place, time, situation, Appropriate for age. Cardiovascular: Patient's skin is warm and dry. Respiratory: Airway is patent Respiratory effort is even, unlabored, Respiratory pattern is regular, symmetrical. GI: No signs and/or symptoms were reported involving the gastrointestinal system. : Reports hematuria. EENT: No signs and/or symptoms were reported regarding the EENT system. Derm: Skin is pink, warm \T\ dry. Musculoskeletal: Range of motion: intact in all extremities. 16:30 Reassessment: No changes from previously documented assessment. Patient and/or family mb9 updated on plan of care and expected duration. Pain level reassessed. Patient is alert, oriented x 3, equal unlabored respirations, skin warm/dry/pink. 17:49 Reassessment: Discharge pending administration of IV fluids. mb9 17:50 Reassessment: No changes from previously documented assessment. Patient and/or family mb9 updated on plan of care and expected duration. Pain level reassessed. Patient is alert, oriented x 3, equal unlabored respirations, skin warm/dry/pink. Vital Signs: 13:32 BP 166 / 90; Pulse 96; Resp 16; Temp 98.7(TE); Pulse Ox 97% on R/A; Weight 62.6 kg; jl7 Height 5 ft. 8 in. ; Pain 0/10; 17:13 BP 133 / 97; Pulse 90; Resp 18; Pulse Ox 100% on R/A; mb9 13:32 Body Mass Index 20.98 (62.60 kg, 172.72 cm) jl7 13:32 Pain Scale: Adult jl7 ED Course: 13:15 Patient arrived in ED. mg5 13:22 Derrell Aly MD is Attending Physician. rebecca 13:36 Triage completed. jl7 13:37 Arm band placed on right wrist. jl7 13:41 CT Stone Protocol In Process Unspecified. EDMS 14:23 Shruti Valera, RN is Primary Nurse. jl7 14:35 Nancy Fernando, EMMANUEL is Primary Nurse. mb9 14:36 Placed in gown. Bed in low position. Call light in reach. Side rails up X 1. Provided mb9 Education on: press call light if needing anything. Client placed on continuous cardiac and pulse oximetry monitoring. NIBP monitoring applied. campus monitor on. Door closed. Noise minimized. Warm blanket given. 14:36 Initial lab(s) drawn, by ar, sent to lab. Inserted saline lock: 20 gauge in left mb9 forearm, using aseptic technique. Blood collected. 14:37 No provider procedures requiring assistance completed. mb9 17:00 Patient requests food. Patient requests liquids. mb9 17:45 Michael Mccarthy MD is Referral Physician. rebecca 18:09 IV discontinued, intact, bleeding controlled, No redness/swelling at site. Pressure mb9 dressing applied. Administered Medications: 14:37 Drug: NS 0.9% IV 500 ml IV at bolus continuous Route: IV; Rate: bolus; Site: left mb9 forearm; 15:26 Follow up: Response: No adverse reaction; IV Status: Completed infusion mb9 17:45 Drug: NS 0.9% IV 500 ml IV at bolus once Route: IV; Rate: bolus; Site: left forearm; mb9 18:09 Follow up: Response: No adverse reaction; IV Status: Completed infusion mb9 17:45 Drug: Flomax PO 0.4 mg PO once Route: PO; mb9 17:54 Follow up: Response: No adverse reaction mb9 17:45 Drug: Rocephin IV 1 grams IV at per protocol once; Given slow IV push per pharmacy mb9 instructions Route: IV; Rate: per protocol; Site: left forearm; 18:09 Follow up: Response: No adverse reaction; IV Status: Completed infusion mb9 17:51 Drug: Ciprofloxacin PO 500 mg PO once Route: PO; mb9 17:54 Follow up: Response: No adverse reaction mb9 Medication: 14:37 VIS not applicable for this client. mb9 Outcome: 17:46 Discharge ordered by MD. fernandez 18:09 Discharged to home ambulatory, mb9 18:09 Condition: stable 18:09 Discharge instructions given to patient, Instructed on discharge instructions, follow up and referral plans. Demonstrated understanding of instructions, follow-up care, medications, Prescriptions given X 2, 18:09 Patient left the ED. mb9 Signatures: Dispatcher [employer] Derrell Urbina MD MD cha Leal, Jahala RN RN [id number] Nancy Fernando RN RN mb9 Charisse Hay mg5
[2023-10-07] MEDS ORDERED: CIPROFLOXACIN HCL 500 MG TAB ONE (17:48)
[2023-10-07 23:25] VITALS: BP 133/97; TEMP 98.7; O2SAT 100
== END 2023-10-07 18:09 | disposition home or self-care (01) ==
LOC: ER 13:07
DX: N30.01 Acute cystitis with hematuria (principal); E11.65 Type 2 diabetes mellitus with hyperglycemia
CPT/HCPCS: 36415; 74176; 76377; 80053; 81001; 85025; 96361; 96365; 99285; J0696; J7040

== ENCOUNTER 2024-03-01 07:48 | Day surgery (SDC) | payer BC, MEDICARE ==
[2024-02-19 09:41] LABS: RBC Red Blood Cell Count 5.31 M/uL (4.33-5.43)
[2024-02-19 09:42] LABS: Absolute Basophils 0.1 K/uL (0-0.5); Absolute Eosinophils 0.2 K/uL (0-0.5); Absolute Monocytes 0.6 K/uL (0.1-1.3); Basophils % 0.9 % (0-1.3); Eosinophils % 1.9 % (0-4.4); Hematocrit 47.9 % (39.6-49.0); Lymphocytes % 12.4 % (15.3-44.8); MCH 31.9 pg (27.0-35.0); MCHC 35.4 g/dL (32.0-36.0); MCV 90.1 fL (80-100); MPV 7.8 fL (7.6-11.3); Monocytes % 7.9 % (3.3-12.3); Neutrophils % 76.9 % (41.7-73.7); Nucleated Red Blood Cells % 0.4 % (0-0); Platelets 195 thou/uL (152-406); Red Cell Distribution Width 14.6 % (12.1-15.2)
[2024-02-19 09:45] LABS: Protime INR 1.07
[2024-02-19 09:54] LABS: Anion Gap 8.3 mEq/L (5.0-15.0); Potassium 4.3 mEq/L (3.5-5.1)
--- NOTE | 2024-02-19 10:28 | RAD REPORT ---
EXAMINATION: TWO VIEW CHEST XR CLINICAL INDICATION: Male, 63 years old. [facility] Pre-op pending bladder biopsies TECHNIQUE: 2 view radiographs of the chest were performed. COMPARISON: 10/05/2020 FINDINGS: The lungs are well inflated and clear. No pneumothorax or sizable effusion. The heart is normal in si ze. Mediastinal contours are unremarkable. IMPRESSION: No acute or significant abnormalities.
--- NOTE | 2024-02-22 12:05 | EKG ---
Test Date: 2024-02-19 Test Time: 10:07:31 Kennel Manager: TATIANA MEASUREMENT RESULTS: Intervals: Rate: 91 CA: 150 QRSD: 144 QT: 396 QTc: 487 [place]: P: 47 CA: 150 QRS: -73 T: 47 INTERPRETIVE STATEMENTS: Normal sinus rhythm Right bundle branch block Left anterior fascicular block Bifascicular block Abnormal ECG Compared to ECG 12/25/2003 07:14:00 Right bundle-branch block now present Left anterior fascicular block now present Bifascicular block now present Left-axis deviation no longer present Electronically Signed On 02-22-24 12:02:12 [employer] by Sawyer Turner
[2024-03-01] MEDS: NA CHLORIDE 0.9% 1,000 ML ONE ×2 (08:45→12:00)
[2024-03-01] MEDS ORDERED: ONDANSETRON 4 MG/2 ML VIAL ONE (10:16)
[2024-03-01] MEDS ORDERED: KETOROLAC 30 MG/ML INJ ONE (10:16)
[2024-03-01] MEDS ORDERED: dexAMETHasone 10 MG/ML VIAL ONE (10:16)
[2024-03-01] MEDS ORDERED: propofoL 200 MG/20 ML VIAL IV ONE (10:17)
[2024-03-01] MEDS ORDERED: LIDOCAINE 1% MPF 5 ML VIAL ONE (10:17)
[2024-03-01] MEDS ORDERED: MIDAZOLAM HCL 2 MG/2 ML INJ ONE (10:17)
[2024-03-01] MEDS ORDERED: FENTANYL CITR 100 MCG/2 ML ONE (10:17)
[2024-03-01] MEDS ORDERED: ROCURONIUM 50 MG/5 ML VIAL IV ONE (10:17)
[2024-03-01] MEDS: CEFAZOLIN SODIUM 1 GM/VIAL ONE (10:40)
[2024-03-01] MEDS ORDERED: EPHEDRINE SULF 50 MG/ML VIAL ONE (10:59)
[2024-03-01] MEDS: FENTANYL CITR 100 MCG/2 ML ONE (12:31)
--- NOTE | 2024-03-01 13:10 | P.OP ---
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 Procedure note: The patient was consented in the preoperative holding area before being transferred to the operative suite where general anesthesia was induced. He was given Ancef 1 g IV antimicrobial prophylaxis, and pneumoboots were provided for DVT prophylaxis. He was placed in the lithotomy position, padded and secured to the table appropriately. His genitalia was prepped with Hibiclens and he was draped in standard fashion. The case has begun attempting to pass the 22 [place] rigid cystoscope, but the meatus was stenotic. As a result, I utilized urethral sounds to dilate the stenotic meatus from 20 [place] to 26 [place] with resistance noted within the fossa navicularis. I was then able to pass the cystoscope via his urethra and until I encountered the area of sessile and slightly papillary mucosal change within the bulbar urethra. Additional more sessile change was noted ventrally in the distal urethra. I thus utilized cold cup biopsy forceps to biopsy and remove 2 of the areas seen, with 1 area biopsied more superficially and the other full-thickness. This was done in an effort to avoid a wide area of the urethra requiring fulguration that might potentially cause significant stricture disease. Less than 1/5 of the urethral lumen was involved in the deeper biopsied tissue. I then traversed the urethra all the way into the patient's bladder going through an elevated bladder neck region with intravesical projection of some very edematous appearing and bleeding tissue present in that location. Posteriorly within the bladder, there was an erythematous patch of mucosa that was noted. An additional erythematous patch was noted in the left lateral wall near the bladder neck, and also in the right lateral wall at the bladder neck and posteriorly. As a result, I utilized cold cup biopsy forceps and biopsied the posterior and left lateral wall regions. Because of significant gross hematuria started up simply from those biopsies, I utilized the Bugbee electrode at a cautery setting of 30 to quell that bleeding. However the bladder would not irrigate well using the 22 [place] rigid cystoscope; so I switched to use the 26 [place] resectoscope. I thus had to dilate the meatus and fossa navicularis further to 28 [place], but this would still not allow passage of the 27 [place] sheath with a visual obturator. So I had to dilate further to 30 and eventually 32 [place]. At this point, I was now able to pass the scope through his urethra and into his bladder. Now able to irrigate his bladder better, the first thing I did was gain complete hemostasis of the biopsied regions in the posterior wall in the left lateral wall at the bladder neck. I then turned my attention to the posterior bladder neck where the abnormal appearing tissue was intraluminally projecting. The ureteral orifices were visible but hidden beneath very edematous appearing mucosa at that location. Taking care to avoid the potential region of the ureteral orifices, I resected the abnormal appearing mucosa invaginating into the region of the trigone and then extending along the median lobe posteriorly toward the verumontanum. The entirety of all of the abnormal appearing tissue involving the median bar and median lobe was resected. This was sent for pathologic analysis. I carefully fulgurated any and all the bleeding tissue in that region. I then surveyed the bladder again and identify the regions in the right lateral wall at the bladder neck and posteriorly and resected a portion of that tissue in the right bladder neck region before using cold cup biopsy forceps to biopsy the region of the right posterior lateral wall. All of the areas were fulgurated to ensure complete hemostasis with the bladder decompressed and all chips and specimens were sent for pathologic analysis. I then surveyed back into the urethra and identified the area of the deeper biopsy and utilized the Bugbee electrode to gently fulgurate around the edges of the tissue biopsy site until it was hemostatic. Again, this involves less than 20% of the circumference of the urethra. I then attempted to pass a 20 [place] Bernard catheter via his urethra into his bladder, but it met a point of obstruction in the bulbomembranous urethra; so I used the cystoscope to navigate back into the bladder and passed a [email or web address] guidewire under direct vision into the bladder before removing the cystoscope and leaving the wire in place. I then passed a 20 [place] catheter over the wire successfully into his bladder with ease. There was decompression of essentially clear yellow urine and fluid without significant blood. 20 cc of sterile water was placed in the balloon. The catheter was connected to a floor bag and he was taken out of the lithotomy position before being awakened from general anesthesia. He was then transferred to a stretcher, and then transferred to the recovery room in good condition. Complications: None Discharge disposition: I would like him to keep the catheter overnight and a voiding trial may be performed tomorrow morning at home. Subsequent follow-up should be established in 1 to 2 weeks time to discuss the results of the pathology of the biopsies taken and next steps in management. Should he develop any flank pain, given the involvement of the ureteral orifice mucosa with the abnormal appearing tissue, we may have to consider the potential stenosis in that location and get an ultrasound.
[2024-03-01] MEDS ORDERED: CODEINE 30MG/APAP 300MG TAB ONE (13:31)
[2024-03-01] MEDS ORDERED: PHENAZOPYRIDINE 100MG TAB PO ONE (13:31)
[2024-03-01] MEDS: CODEINE 30MG/APAP 300MG TAB PO PRN (13:38)
[2024-03-01] MEDS: PHENAZOPYRIDINE 100MG TAB PO ONE (13:38)
[2024-03-01 15:54] VITALS: BP 126/82; TEMP 97.1; O2SAT 97
== END 2024-03-01 15:45 | disposition home or self-care (01) ==
LOC: OR 07:48
PROVIDERS: ATTEND Urology
PROC: 0TBD8ZX Excision of Urethra, Via Natural or Artificial Opening Endoscopic, Diagnostic (ICD-10-PCS; 2024-03-01)
PROC: 0TBC8ZX Excision of Bladder Neck, Via Natural or Artificial Opening Endoscopic, Diagnostic (ICD-10-PCS; 2024-03-01)
PROC: 0TBB8ZX Excision of Bladder, Via Natural or Artificial Opening Endoscopic, Diagnostic (ICD-10-PCS; principal; 2024-03-01 09:45)
DX: C67.8 Malignant neoplasm of overlapping sites of bladder (principal); R31.0 Gross hematuria; N32.3 Diverticulum of bladder; N20.0 Calculus of kidney; N35.919 Unspecified urethral stricture, male, unspecified site; F17.210 Nicotine dependence, cigarettes, uncomplicated; Z85.819 Personal history of malignant neoplasm of unspecified site of lip, oral cavity, and pharynx
CPT/HCPCS: 36415; 71046; 80048; 82947; 85025; 85610; 87086; 87088; 88305; 93005; J0690; J1100; J2003; J2250; J2405; J2704; J3010; J7030

== ENCOUNTER 2024-03-02 08:16 | Emergency (ER) | payer BC ==
--- OUTSIDE RECORDS SUMMARY | 2024-03-02 08:20 | XMS REPORT | Continuity of Care Document ---
Author Name Unknown Address [address] [facility] [address] [place] [address] [facility] thconnect Address [address] [place] [address] Care Team Providers Care Public Weigher Name Role Phone Aileen Kwok Primary Care Physician [phone] Aileen Kwok Attending Clinician Unavailable SYSTEM, PROVIDER NOT IN Attending Clinician Unav ailable ROUSE_F Attending Clinician Unavailable EBN [place] Attending Clinician Unavailable ROUSE_F Admitting Clinician Unavailable Payers Payer Name Policy Type Policy Number Effective Date Expirati on Date Source [facility] [id number] 2021 00:00:00 2021 00:00:00 [facility] MEDICARE ADVANT[place]/ADVA NTAGE - PPO) [id number] 2023 00:00:00 2023 00:00:00 [place] [id number] 2018 00:00:00 [facility] 6 [id number] [facility] Jason from [facility] [id number] [facility] Ambetter from [facility] [id number] [facility] Ambetter from [facility] [id number] [facility] Problems Condition Name Condition Details Condition Category Status Onset Date Resolution Date Last Treatment Date Treating Clinician Comments Source 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 Problem Active 06-16 00:00: 00 [facility] Lateral epicondyli tis of left humerus Lateral Epicondyli tis of Left Humerus Problem Active 08-28 00:00: 00 [facility] Swelling of finger Swelling of Finger Problem Active 06-22 00:00: 00 [facility] Increased frequency of urination Increased Frequency of Urination Problem Active 06-08 00:00: 00 [facility] Secondary erectile dysfunctio n Secondary Erectile Dysfunctio n Problem Active 06-08 00:00: 00 [facility] Diabetes mellitus Diabetes Mellitus Problem Active 06-08 00:00: 00 [facility] No known active problems No known active problems Disease [facility] Nicotine dependence Nicotine dependence , cigarettes , with other nicotine-i nduced disorders Problem Common [facility] 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 Problem [facility] [id number] Penile bleeding Problem [facility] [id number] Gross hematuria Problem [facility] [id number] Left nephrolith iasis Problem [facility] [id number] Other obstructiv e and reflux uropathy Problem [facility] [id number] Acquired bladder diverticul um Problem [facility] [id number] Lesion of bladder Problem [facility] Erectile dysfunctio n Erectile dysfunctio n Problem [facility] Hyperlipid aemia Hyperlipem ia Problem [facility] [id number] Labile blood glucose Problem [facility] [id number] Benign prostatic hyperplasi a with lower urinary tract symptoms Problem [facility] [id number] Current moderate episode of major depressive disorder without prior episode Problem [facility] 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 Problem [facility] 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 Problem [facility] [id number] Type 2 diabetes mellitus with hyperglyce tone, without long-term current use of insulin Problem [facility] 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 Problem [facility] Secondary malignant neoplasm of lymph node 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 Cigarette pack-years 2021-09-09 00:00:00 2021-09-09 00:00:[address] [facility] Tobacco use and exposure 2021-09-09 00:00:00 2021-09-09 00:00:00 Smokeless tobacco non-user [facility] Alcohol intake 2021-09-09 00:00:00 2021-09-09 00:00:00 Lifetime non-drinker (finding) [facility] Smoking Status Start Date Stop Date Source Heavy Tobacco Smoker [facility] Tobacco smoking consumption unknown [facility] Current Smoker 2024-01-14 00:00:00 [facility] Medications Ordered Medication Name Filled Medication Name Start Date Stop Date Current Medication? Ordering Clinician Indication Dosage Frequency Signature (SIG) Comments Components Source Flomax 0.4 MG Flomax 0.4 MG 2023-03 0 00:00: 00 No 2{capsu les} QD Flomax 0.4 MG No known medications 09-09 14:04: 34 No No known medication [facility] glipiZIDE-m etFORMIN HCl 5-500 MG glipiZIDE-m etFORMIN HCl 5-500 MG No 1{table t_with_ a_meal} BID glipiZIDE- metFORMIN HCl 5-500 MG glyburide 5 mg tablet TAKE ONE (1) TABLET(S) BY MOUTH ONCE A DAY. glyburide 5 mg tablet TAKE ONE (1) TABLET(S) BY MOUTH ONCE A DAY. No glyburide 5 mg tablet TAKE ONE (1) TABLET(S) BY MOUTH ONCE A DAY. [facility] metformin ER 500 mg tablet,exte nded release 24 hr TAKE ONE (1) TABLET BY MOUTH TWICE A DAY. metformin ER 500 mg tablet,exte nded release 24 hr TAKE ONE (1) TABLET BY MOUTH TWICE A DAY. No metformin ER 500 mg tablet,ext ended release 24 hr TAKE ONE (1) TABLET BY MOUTH TWICE A DAY. [facility] FreeStyle Gonzalez 3 Godwin Use as directed. FreeStyle Gonzalez 3 Godwin Use as directed. No FreeStyle Gonzalez 3 Godwin Use as directed. [facility] FreeStyle Gonzalez 3 Sensor device USE DIRECTED TO CHECK BLOOD GLUCOSE (CHANGE EVERY 14 DAYS). FreeStyle Gonzalez 3 Sensor device USE DIRECTED TO CHECK BLOOD GLUCOSE (CHANGE EVERY 14 DAYS). No FreeStyle Gonzalez 3 Sensor device USE DIRECTED TO CHECK BLOOD GLUCOSE (CHANGE EVERY 14 DAYS). [facility] tamsulosin 0.4 mg capsule TAKE TWO (2) CAPSULE(S) BY MOUTH ONCE A DAY. tamsulosin 0.4 mg capsule TAKE TWO (2) CAPSULE(S) BY MOUTH ONCE A DAY. No tamsulosin 0.4 mg capsule TAKE TWO (2) CAPSULE(S) BY MOUTH ONCE A DAY. [facility] metoclopram denny 10 mg tablet TAKE THREE (3) TABLET(S) BY MOUTH DIRECTED PER COLONOSCOPY PACKET. metoclopram denny 10 mg tablet TAKE THREE (3) TABLET(S) BY MOUTH DIRECTED PER COLONOSCOPY PACKET. No metoclopra mide 10 mg tablet TAKE THREE (3) TABLET(S) BY MOUTH DIRECTED PER COLONOSCOP Y PACKET. [facility] sodium,pota ssium,mag sulfates 17.5 gram-3.13 gram-1.6 gram oral soln USE DIRECTED PER PACKET INSTRUCTION S. sodium,pota ssium,mag sulfates 17.5 gram-3.13 gram-1.6 gram oral soln USE DIRECTED PER PACKET INSTRUCTION S. No sodium,pot assium,mag sulfates 17.5 gram-3.13 gram-1.6 gram oral soln USE DIRECTED PER PACKET INSTRUCTIO NS. [facility] Immunizations Ordered Immunization Name Filled Immunization Name Date Status Comments Source influenza, injectable, quadrivalent influenza, injectable, quadrivalent Unknown Completed [facility] Vital Signs Vital Name Observation Time Observation Value Comments S ource Body Weight 2024-02-11 00:00:00 2320 [oz_av] [facility] BMI (Body Mass Index) 2024-02-11 00:00:00 22.7 kg/m2 [facility] Height 2024-02-11 00:00:00 67 [in_i] [facility] BP Diastolic 2024-02-11 00:00:00 76 mm[Hg] [facility] BP Systolic 2024-02-11 00:00:00 128 mm[Hg] [facility] height 2024-01-14 17:45:00 67 [in_i] [facility] weight 2024-01-14 17:45:00 141.6 [lb_av] Co mmon [facility] temperature 2024-01-14 17:45:00 97.9 [degF] Com mon [facility] bmi 2024-01-14 17:45:00 22.18 kg/m2 Comm on [facility] oximetry 2024-01-14 17:45:00 96 % Commo n [facility] respiratory rate 2024-01-14 17:45:00 18 /min [facility] blood pressure systolic 2024-01-14 17:45:00 126 mm[Hg] [facility] blood pressure diastolic 2024-01-14 17:45:00 80 mm[Hg] [facility] height 2023-11-11 16:45:00 67 [in_i] Commo n [facility] weight 2023-11-11 16:45:00 146.2 [lb_av] Co mmon [facility] temperature 2023-11-11 16:45:00 98.4 [degF] Com mon [facility] bmi 2023-11-11 16:45:00 22.9 kg/m2 Commo n [facility] oximetry 2023-11-11 16:45:00 97 % [facility] n [facility] respiratory rate 2023-11-11 16:45:00 16 /min [facility] blood pressure systolic 2023-11-11 16:45:00 140 mm[Hg] Common [facility] blood pressure diastolic 2023-11-11 16:45:00 74 mm[Hg] Common [facility] BP Diastolic 2023-11-11 00:00:00 76 mm[Hg] [facility] Body Weight 2023-11-11 00:00:00 2320 [oz_av] [facility] BMI (Body Mass Index) 2023-11-11 00:00:00 22.7 kg/m2 [facility] BP Systolic 2023-11-11 00:00:00 140 mm[Hg] [facility] Height 2023-11-11 00:00:00 67 [in_i] [facility] BP Diastolic 2023-09-03 00:00:00 92 mm[Hg] [facility] Height 2023-09-03 00:00:00 67 [in_i] [facility] BP Systolic 2023-09-03 00:00:00 158 mm[Hg] [facility] BP Systolic 2023-06-17 00:00:00 144 mm[Hg] [facility] Height 2023-06-17 00:00:00 67 [in_i] [facility] BP Diastolic 2023-06-17 00:00:00 80 mm[Hg] [facility] height 2023-03-02 09:40:00 67 [in_i] Commo n [facility] weight 2023-03-02 09:40:00 141.8 [lb_av] Co mmon [facility] temperature 2023-03-02 09:40:00 97.8 [degF] Com mon [facility] bmi 2023-03-02 09:40:00 22.21 kg/m2 Comm on [facility] oximetry 2023-03-02 09:40:00 99 % Commo n [facility] respiratory rate 2023-03-02 09:40:00 16 /min [facility] blood pressure systolic 2023-03-02 09:40:00 139 mm[Hg] [facility] blood pressure diastolic 2023-03-02 09:40:00 69 mm[Hg] Common [facility] height 2022-10-28 13:20:00 67 [in_i] Commo n [facility] weight 2022-10-28 13:20:00 139.4 [lb_av] Co mmon [facility] temperature 2022-10-28 13:20:00 98.0 [degF] Com mon [facility] bmi 2022-10-28 13:20:00 21.83 kg/m2 Comm on [facility] oximetry 2022-10-28 13:20:00 95 % Commo n [facility] respiratory rate 2022-10-28 13:20:00 16 /min Common [facility] blood pressure systolic 2022-10-28 13:20:00 138 mm[Hg] [facility] blood pressure diastolic 2022-10-28 13:20:00 79 mm[Hg] [facility] height 2022-08-20 14:00:00 67 [in_i] Commo n [facility] weight 2022-08-20 14:00:00 139.8 [lb_av] Co mmon [facility] temperature 2022-08-20 14:00:00 97.1 [degF] Com [facility] bmi 2022-08-20 14:00:00 21.89 kg/m2 Comm on [facility] oximetry 2022-08-20 14:00:00 98 % Commo n [facility] respiratory rate 2022-08-20 14:00:00 16 /min Common [facility] blood pressure systolic 2022-08-20 14:00:00 120 mm[Hg] Common [facility] blood pressure diastolic 2022-08-20 14:00:00 80 mm[Hg] Common [facility] height 2022-06-04 13:00:00 67 [in_i] Commo n [facility] weight 2022-06-04 13:00:00 138.6 [lb_av] Co mmon [facility] temperature 2022-06-04 13:00:00 98.3 [degF] Com [facility] bmi 2022-06-04 13:00:00 21.71 kg/m2 Comm on [facility] oximetry 2022-06-04 13:00:00 98 % Commo n [facility] respiratory rate 2022-06-04 13:00:00 16 /min Common [facility] blood pressure systolic 2022-06-04 13:00:00 138 mm[Hg] [facility] blood pressure diastolic 2022-06-04 13:00:00 82 mm[Hg] Common [facility] height 2022-01-29 13:00:00 67 [in_i] Commo n [facility] weight 2022-01-29 13:00:00 138 [lb_av] Comm on [facility] temperature 2022-01-29 13:00:00 97.8 [degF] Com mon [facility] bmi 2022-01-29 13:00:00 21.61 kg/m2 Comm on [facility] oximetry 2022-01-29 13:00:00 97 % Commo n [facility] respiratory rate 2022-01-29 13:00:00 17 /min Common [facility] blood pressure systolic 2022-01-29 13:00:00 134 mm[Hg] Common [facility] blood pressure diastolic 2022-01-29 13:00:00 79 mm[Hg] [facility] Body height 2021-09-09 18:59:00 [facility]7 [facility] Body weight 2021-09-09 18:59:00 61.236 [facility] BMI 2021-09-09 18:59:00 20.53 kg/m2 [facility] height 2021-08-20 09:00:00 67 [in_i] Commo n [facility] weight 2021-08-20 09:00:00 138.8 [lb_av] Co mmon [facility] temperature 2021-08-20 09:00:00 97.7 [degF] Com mon [facility] bmi 2021-08-20 09:00:00 21.74 kg/m2 Comm on [facility] oximetry 2021-08-20 09:00:00 99 % Commo n [facility] respiratory rate 2021-08-20 09:00:00 18 /min Common [facility] blood pressure systolic 2021-08-20 09:00:00 132 mm[Hg] [facility] blood pressure diastolic 2021-08-20 09:00:00 82 mm[Hg] Common [facility] height 2021-03-11 15:20:00 67 [in_i] Commo n [facility] weight 2021-03-11 15:20:00 142.8 [lb_av] Co mmon [facility] temperature 2021-03-11 15:20:00 97.9 [degF] Com mon [facility] bmi 2021-03-11 15:20:00 22.36 kg/m2 Comm on [facility] oximetry 2021-03-11 15:20:00 97 % Commo n [facility] respiratory rate 2021-03-11 15:20:00 16 /min [facility] blood pressure systolic 2021-03-11 15:20:00 136 mm[Hg] [facility] blood pressure diastolic 2021-03-11 15:20:00 78 mm[Hg] [facility] height 2020-11-23 11:20:00 67 [in_i] Commo n [facility] weight 2020-11-23 11:20:00 151 [lb_av] Comm on [facility] temperature 2020-11-23 11:20:00 98.4 [degF] Com [facility] bmi 2020-11-23 11:20:00 23.65 kg/m2 Comm on [facility] Procedures Procedure Date / Time Performed Performing Clinicia n Source PVR 2023-11-11 00:00:00 Common [facility] CT, abdomen + pelvis, w/o contrast 2023-09-03 00:00:00 [facility] Insertion of Feeding Tube into Duodenum [facility] Biopsy of Tonsil [facility] Hernia Repair [facility] Ear Tube [facility] Encounters Start Date/Time End Date/Time Encounter Type Admission Type Attending Clinicians Care Facility Care Department Encounter ID Source 2023-11-04 09:46:00 Outpatient Aileen Kwok [facility] [id number] [facility] 2023-04-09 09:09:00 Outpatient Aileen Kwok [facility] [id number] [facility] 2023-04-01 11:22:00 Outpatient Aileen Kwok [facility] [id number] [facility] 2023-03-02 09:44:00 Outpatient Aileen Kwok [facility] [id number] [facility] 2022-10-28 12:52:00 Outpatient Aileen Kwok [facility] [id number] [facility] 2022-10-27 13:24:00 Outpatient ColemanAileen benavides [facility] [id number] [facility] 2022-08-18 14:57:00 Outpatient Aileen Kwok [facility] [id number] [facility] 2022-06-02 13:47:00 Outpatient Aileen Kwok [facility] [id number] [facility] 2022-05-08 15:55:59 Outpatient [facility] [id number] [facility] 2022-04-30 09:43:01 Outpatient Aileen Kwok [facility] [id number] [facility] 2022-01-29 13:03:01 Outpatient Aileen Kwok [facility] [id number] [facility] 2022-01-14 07:34:00 Outpatient ColemanAileen benavides [facility] [id number] [facility] 2021-12-05 10:26:00 Outpatient ColemanLorie benavidesa [facility] [id number] [facility] 2021-11-14 11:04:00 Outpatient Aileen Kwok [facility] [id number] [facility] 2021-08-21 11:28:00 Outpatient Aileen Kwok [facility] [id number] [facility] 2021-05-23 13:52:01 Outpatient ColemanAileen benavides [facility] [id number] [facility] 2021-04-24 14:24:55 Outpatient ColemanAileen benavides [facility] [id number] [facility] 2021-04-24 13:26:48 Outpatient ColemanAileen benavides [facility] [id number] [facility] 2021-04-24 13:09:59 Outpatient ColemanAileen benavides [facility] [id number] [facility] 2021-04-24 12:24:06 Outpatient Aileen Kwok [facility] [id number] [facility] 2021-04-24 12:08:45 Outpatient Aileen Kwok [facility] [id number] [facility] 2021-04-24 12:07:09 Outpatient ColemanAileen benavides [facility] [id number] [facility] 2021-04-24 12:03:10 Outpatient ColemanAileen benavides [facility] [id number] [facility] 2021-04-24 11:52:54 Outpatient Aileen Kwok [facility] [id number] [facility] 2021-04-24 11:48:59 Outpatient ColemanAileen benavides [facility] [id number] [facility] 2021-04-24 11:48:19 Outpatient ColemanAileen benavides [facility] [id number] [facility] 2021-04-24 11:05:15 Outpatient ColemanAileen benavides [facility] [id number] [facility] 2021-04-24 11:04:26 Outpatient ColemanAileen benavides [facility] [id number] [facility] 2020-10-26 16:11:46 Outpatient SYSTEM, PROVIDER MDA MDA [id number] MD Azalia dailey 2024-02-23 00:00:00 2024-02-23 00:00:00 (TEL) [facility] [id number] [facility] 2024-02-12 00:00:00 2024-02-12 00:00:00 (TEL) [facility] [id number] [facility] 2024-02-11 00:00:00 2024-02-11 00:00[facility]00 [facility]: [address], [place] [address] , Ph. [facility] [id number] [facility] 2024-01-14 00:00:00 2024-01-14 00:00:00 OFFICE VISIT ESTAB PT LEVEL 5 [facility] [id number] [facility] 2023-11-20 00:00:00 2023-11-20 00:00:00 (TEL) [facility] [id number] [facility] 2023-11-11 00:00:00 2023-11-11 00:00:00 OFFICE VISIT NEW PT LEVEL 3 [facility] [id number] [facility] 2023-11-11 00:00:00 2023-11-11 00:00:00 SATURNINO Valentin: [address], [place] [address] , Ph. [phone] [facility], [facility] [id number] [facility] 2023-09-03 00:00:00 2023-09-03 00:00:00 SATURNINO Valentin: [address], [place] [address] , Ph. [facility], YUNIER BALDERRAMA, L[facility]-C [id number] 606 [facility] 2023-06-17 00:00:00 2023-06-17 00:00:00 Outpatient ROUSE_F [facility] [id number] [facility] 2023-06-17 00:00:00 2023-06-17 00:00:00 Avelinoval Balderrama, [facility]: [address], [place] [address] , Ph. [facility], DR. HAMMONDS [id number] [facility] 2023-05-01 00:00:00 2023-05-01 00:00:00 (TEL) [facility] [id number] [facility] 2023-04-30 00:00:00 2023-04-30 00:00:00 Outpatient ROUSE_F [facility] [id number] [facility] 2023-04-21 00:00:00 2023-04-21 00:00:00 (TEL) [facility]C [facility] [id number] [facility] 2023-04-09 00:00:00 2023-04-09 00:00:00 (TEL) [facility]C [facility] [id number] [facility] 2023-03-02 00:00:00 2023-03-02 00:00:00 OFFICE VISIT ESTAB PT LEVEL 3 [facility] [id number] [facility] 2022-10-29 00:00:00 2022-10-29 00:00:00 (TEL) [facility]C [facility] [id number] [facility] 2022-10-28 00:00:00 2022-10-28 00:00:00 OFFICE VISIT ESTAB PT LEVEL 3 [facility] [id number] [facility] 2022-08-20 00:00:00 2022-08-20 00:00:00 OFFICE VISIT ESTAB PT LEVEL 3 [facility] [id number] [facility] 2022-08-19 00:00:00 2022-08-19 00:00:00 (TEL) [facility]C [facility] [id number] [facility] 2022-06-17 00:00:00 2022-06-17 00:00:00 (TEL) [facility]C [facility] [id number] [facility] 2022-06-04 00:00:00 2022-06-04 00:00:00 OFFICE VISIT ESTAB PT LEVEL 4 [facility] [id number] [facility] 2022-05-08 00:00:00 2022-05-08 00:00:00 (TEL) [facility]MLC [facility] [id number] [facility] 2022-05-08 00:00:00 2022-05-08 00:00:00 (TEL) ST[facility]MLC [facility] [id number] [facility] 2022-04-28 00:00:00 2022-04-28 00:00:00 (TEL) [facility] [id number] [facility] 2022-01-31 00:00:00 2022-01-31 00:00:00 (TEL) [facility]C [facility] [id number] [facility] 2022-01-29 00:00:00 2022-01-29 00:00:00 OFFICE VISIT ESTAB PT LEVEL 4 [facility] [id number] [facility] 2021-11-11 08:30:00 2021-11-11 08:30:00 Outpatient [place] [facility] [id number] [facility] 2021-10-21 08:45:00 2021-10-21 08:45:00 Outpatient [place] [facility] [id number] [facility] 2021-10-07 00:00:00 2021-10-07 00:00:00 (TEL) [facility]C STLMLC [id number] [facility] 2021-09-09 14:30:00 2021-09-09 14:54:09 Office Visit Ben Orlando [address] [id number] [facility] 2021-08-27 00:00:00 2021-08-27 00:00:00 Telephone Ben Orlando [facility] [address] [id number] [facility] 2021-08-20 00:00:00 2021-08-20 00:00:00 PREV VISIT EST AGE 40-64 [facility] STL[facility]C [id number] [facility] 2021-08-19 00:00:00 2021-08-19 00:00:00 (TEL) [facility] ST[facility]C [id number] [facility] 2021-03-11 00:00:00 2021-03-11 00:00:00 OFFICE VISIT ESTAB PT LEVEL 4 [facility] [id number] [facility] 2020-11-23 00:00:00 2020-11-23 00:00:00 OFFICE VISIT EST PT LEVEL 3 [facility] [id number] [facility] 2020-11-20 00:00:00 2020-11-20 00:00:00 (TEL) [facility]C [id number] [facility] 2020-11-07 00:00:00 2020-11-07 00:00:00 (TEL) [facility]C ST[facility]C [id number] [facility] 2020-10-16 05:21:00 2020-10-16 05:21:00 Outpatient [facility] [id number] [facility] 2020-10-08 00:00:00 2020-10-08 00:00:00 (TEL) [facility]C [id number] [facility] 2020-08-31 00:00:00 2020-08-31 00:00:00 Outpatient [facility] [id number] [facility] 2020-08-07 00:00:00 2020-08-07 00:00:00 Outpatient [facility] [id number] [facility] 2020-05-31 00:00:00 2020-05-31 00:00:00 Outpatient [facility] [id number] [facility] 2020-03-01 00:00:00 2020-03-01 00:00:00 Outpatient [facility] [id number] [facility] 2020-02-02 00:00:00 2020-02-02 00:00:00 Outpatient [facility] [id number] [facility] 2020-01-25 00:00:00 2020-01-25 00:00:00 Outpatient [facility] [id number] [facility] 2020-01-24 00:00:00 2020-01-24 00:00:00 Outpatient [facility] [id number] [facility] 2020-01-13 00:00:00 2020-01-13 00:00:00 Outpatient [facility] [id number] [facility] 2020-01-05 00:00:00 2020-01-05 00:00:00 Outpatient [facility] [id number] [facility] 2019-12-29 00:00:00 2019-12-29 00:00:00 Outpatient [facility] [id number] [facility] 2019-12-26 00:00:00 2019-12-26 00:00:00 Outpatient [facility] [id number] [facility] 2019-12-26 00:00:00 2019-12-26 00:00:00 Outpatient [facility] [id number] [facility] 2019-04-28 13:20:00 2019-04-28 13:20:00 [facility] [id number] [facility] 2018-11-12 08:40:00 2018-11-12 08:40:[address] [facility] [id number] [facility] 2018-07-06 08:40:00 2018-07-06 08:40:[address] [facility] [facility] [id number] [facility] 2018-05-13 10:30:00 2018-05-13 10:30:00 [facility] [id number] [facility] 2018-04-28 14:53:00 2018-04-28 14:53:00 [facility] [id number] [facility] 2017-09-15 15:30:00 2017-09-15 15:30:00 [facility] [id number] [facility] Results Test Description Test Time Test Comments Results Result Co mments Source HEMOGLOBIN [id number] 00:00:00* Test Item Value Reference Range Interpretation Comme nts A1C (test code = 4548-4) 7.6 HEMOGLOBIN [id number] 00:00:00* Test Item Value Reference Range Interpretation Comme nts A1C (test code = 4548-4) 7.8
--- NOTE | 2024-03-02 09:36 | EDPHYS ---
Physician Documentation [facility] Name: Wayne Billy Age: 63 yrs Sex: Male : 1960 Arrival Date: 03/02/2024 Time: 08:16 Bed 18 Private MD: ED Physician Herbert Rangel HPI: 03/02 09:31 This 63 yrs old Male presents to ER via EMS with complaints of Problem With Urinary rn Catheter. 09:31 The patient presents with a Bernard catheter problem, Cannot remove it. Onset: The rn symptoms/episode began/occurred this morning. Severity of symptoms: At their worst the symptoms were mild, in the emergency department the symptoms are unchanged. The patient has not experienced similar symptoms in the past. Patient reports just saw urology and had biopsy of bladder. Bernard catheter was placed yesterday and told to remove it himself at 7 AM today. Patient removed 10 cc of saline from balloon and catheter would not come out. No other complications. Patient states he has not eaten or drink anything this morning. No dizziness. No chest pain or abdominal pain.. Historical: - Allergies: 08:33 No Known Allergies; db - PMHx: 08:33 Completed Radiation and Chemotherapy; Diabetes - NIDDM; Neck Cancer; Tonsill Cancer; db - PSHx: 08:33 PEG tube and reversal; Tonsillectomy; db - Immunization history:: Adult Immunizations unknown. - Infectious Disease History:: Denies. - Social history:: Smoking status: Patient reports the use of cigarette tobacco products, smokes one-half pack cigarettes per day. - Family history:: not pertinent. - Hospitalizations: : No recent hospitalization is reported. ROS: 09:31 Constitutional: Negative for fever, chills, and weight loss, Cardiovascular: Negative rn for chest pain, palpitations, and edema, Respiratory: Negative for shortness of breath, cough, wheezing, and pleuritic chest pain, Abdomen/GI: Negative for abdominal pain, nausea, vomiting, diarrhea, and constipation, : Unable to remove Bernard catheter Neuro: Negative for headache, weakness, numbness, tingling, and seizure, Exam: 09:31 Constitutional: This is a well developed, well nourished patient who is awake, alert, rn and in no acute distress. Cardiovascular: Regular rate and rhythm. No pulse deficits. Respiratory: No increased work of breathing, no retractions or nasal flaring. Abdomen/GI: Soft, non-tender Male : Bernard catheter in place, was able to withdraw more than 10 cc of fluid from balloon which is likely what led to patient unable to remove it Vital Signs: 08:15 BP 85 / 69; Pulse 78; Resp 16; Temp 98; Pulse Ox 98% ; Weight 63.5 kg; Height 5 ft. 8 db in. ; 08:49 BP 85 / 59; Pulse 76; Resp 16; Pulse Ox 98% on R/A; db 09:15 BP 89 / 65; Pulse 78; Resp 16; Pulse Ox 99% on R/A; db 08:15 Body Mass Index 21.29 (63.50 kg, 172.72 cm) db MDM: 08:22 Medical Screening Exam initiated rn 09:31 Differential diagnosis: Bernard catheter problem. Data reviewed: vital signs, nurses rn notes, and as a result, I will discharge patient. Counseling: I had a detailed discussion with the patient and/or guardian regarding the historical points, exam findings, and any diagnostic results supporting the discharge/admit diagnosis, the need for outpatient follow up, to return to the emergency department if symptoms worsen or persist or if there are any questions or concerns that arise at home. Refusal of service: The patient/guardian displays adequate decision making capability and despite a detailed discussion of alternatives, benefits, risks, and consequences refuses: CT Scan, all lab tests, Medications. ED course: Patient noted to be mildly hypotensive on evaluation. Patient has no complaints. When discussed his blood pressure with him he refused any workup or investigation, states feels fine and is only here for Bernard catheter removal. Understands risks of leaving with low blood pressure. Given return precautions and understood.. 03/02 08:34 [facility] Order: remove catheter per patient's request; Complete Time: 08:59 rn Administered Medications: No medications were administered Disposition Summary: 03/02/24 09:35 Discharge Ordered Notes: Location: Home rn Problem: new rn Symptoms: have improved rn Condition: Stable rn Diagnosis - Mechanical complication of urinary (indwelling) catheter rn Followup: rn - With: Private Physician - When: As needed - Reason: Recheck today's complaints, Re-evaluation by your physician Discharge Instructions: - Discharge Summary Sheet rn - Indwelling Urinary Catheter Care, Adult rn - Hypotension rn Forms: - Medication Reconciliation Form rn - Antibiotic 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
--- NOTE | 2024-03-02 09:36 | ER ---
Nurse's Notes [facility] Name: Wayne Billy Age: 63 yrs Sex: Male : 1960 Arrival Date: 03/02/2024 Time: 08:16 Bed 18 Private MD: Diagnosis: Mechanical complication of urinary (indwelling) catheter Presentation: 03/02 08:15 Chief complaint: EMS states: PATIENT WAS TRYING TO REMOVED JOHNSON CATHETER THIS AM AND db HAD DIFFICULTY. UPON EMS ARRIVAL PT HAD LOW BP OF 95/54. GIVEN 600 NS BOLUS BY EMS. Coronavirus screen: Client denies travel out of the [place] in the last 14 days. At this time, the client does not indicate any symptoms associated with coronavirus-19. Ebola Screen: Patient negative for fever greater than or equal to 101.5 degrees Fahrenheit, and additional compatible Ebola Virus Disease symptoms Patient denies exposure to infectious person. Patient denies travel to an Ebola-affected area in the 21 days before illness onset. No symptoms or risks identified at this time. Initial Sepsis Screen: Does the patient meet any 2 criteria? No. Patient's initial sepsis screen is negative. Does the patient have a suspected source of infection? No. Patient's initial sepsis screen is negative. Risk Assessment: Do you want to hurt yourself or someone else? Patient reports no desire to harm self or others. Onset of symptoms was March 02, 2024. 08:15 Method Of Arrival: EMS: [facility] db 08:15 Acuity: CRISTAL 3 db Triage Assessment: 08:33 General: Appears in no apparent distress. comfortable, Behavior is calm, cooperative. db Pain: Denies pain. : Reports URINARY JOHNSON IN PLACE WITH DARK YELLOW URINE. Historical: - Allergies: 08:33 No Known Allergies; db - PMHx: 08:33 Completed Radiation and Chemotherapy; Diabetes - NIDDM; Neck Cancer; Tonsill Cancer; db - PSHx: 08:33 PEG tube and reversal; Tonsillectomy; db - Immunization history:: Adult Immunizations unknown. - Infectious Disease History:: Denies. - Social history:: Smoking status: Patient reports the use of cigarette tobacco products, smokes one-half pack cigarettes per day. - Family history:: not pertinent. - Hospitalizations: : No recent hospitalization is reported. Screenin:44 [facility] ED Fall Risk Assessment (Adult) History of falling in the last 3 months, db including since admission No falls in past 3 months (0 pts) Confusion or Disorientation No (0 pts) Intoxicated or Sedated No (0 pts) Impaired Gait No (0 pts) Mobility Assist Device Used No (0 pt) Altered Elimination No (0 pt) Score/Fall Risk Level 0 - 2 = Low Risk Oriented to surroundings, Maintained a safe environment. Abuse screen: Denies threats or abuse. Denies injuries from another. Nutritional screening: No deficits noted. Tuberculosis screening: No symptoms or risk factors identified. Assessment: 08:57 Reassessment: Patient appears in no apparent distress at this time. Patient and/or db family updated on plan of care and expected duration. Pain level reassessed. Patient is alert, oriented x 3, equal unlabored respirations, skin warm/dry/pink. PATIENT JOHNSON CATHETER REMOVED. 20 CC REMOVED FROM JOHNSON CATHETER BALLOON. NOTED SMALL AMOUNT OF BLOOD AROUND TIP OF CATHETER. PATIENT REPORTS NO PAIN AND STATES FEELS MORE COMFORTABLE. NOTIFIED DR. RANGEL. General: Appears in no apparent distress. comfortable, Behavior is calm, cooperative. Pain: Denies pain. Neuro: Level of Consciousness is awake, alert, obeys commands, Oriented to person, place, time, situation. Respiratory: Airway is patent Respiratory effort is even, unlabored, Respiratory pattern is regular, symmetrical. : Johnson in place REMOVED. 09:44 Reassessment: Patient appears in no apparent distress at this time. Patient and/or db family updated on plan of care and expected duration. Pain level reassessed. Patient is alert, oriented x 3, equal unlabored respirations, skin warm/dry/pink. PATIENT LEFT. REFUSED TREATMENT FOR BP. IN NAD. AMBULATORY WITH [facility]Y GATE. DENIES DIZZINESS. PT REPORTS RIDE IS ON THE WAY. Vital Signs: 08:15 BP 85 / 69; Pulse 78; Resp 16; Temp 98; Pulse Ox 98% ; Weight 63.5 kg; Height 5 ft. 8 db in. ; 08:49 BP 85 / 59; Pulse 76; Resp 16; Pulse Ox 98% on R/A; db 09:15 BP 89 / 65; Pulse 78; Resp 16; Pulse Ox 99% on R/A; db 08:15 Body Mass Index 21.29 (63.50 kg, 172.72 cm) ED Course: 08:15 Maintain EMS IV. Dressing intact. Good blood return noted. Site clean \T\ dry. Gauge \T\ db site: 20 G RIGHT FOREARM. Flushed with 10 mL NS. 08:22 Patient arrived in ED. db 08:22 Herbert Rangel MD is Attending Physician. rn 08:32 Triage completed. db 08:33 Arm band placed on Patient placed in an exam room. db 08:57 Haven Victoria, RN is Primary Nurse. db 09:44 Patient has correct armband on for positive identification. Bed in low position. Call db light in reach. Side rails up X 1. Provided Education on: DISCHARGE AND FOLLOWUP. Pulse ox on. NIBP on. Warm blanket given. Pillow given. 09:44 No provider procedures requiring assistance completed. IV discontinued, intact, db bleeding controlled. Administered Medications: No medications were administered Medication: 08:57 VIS not applicable for this client. db Outcome: 09:35 Discharge ordered by . rn 09:44 Discharged to home ambulatory, with friend, db 09:44 Condition: stable 09:44 Discharge instructions given to patient, Instructed on discharge instructions, follow up and referral plans. 09:52 Patient left the ED. db Signatures: Herbert Rangel MD MD rn Benton, Danielle, EMMANUEL RN db
[2024-03-02 14:24] VITALS: BP 89/65; O2SAT 99
== END 2024-03-02 09:52 | disposition home or self-care (01) ==
LOC: ER 08:16
DX: T83.098A Other mechanical complication of other urinary catheter, initial encounter (principal)
CPT/HCPCS: 99283

== ENCOUNTER 2024-06-01 06:38 | Day surgery (SDC) | payer BC ==
[2024-06-01] MEDS ORDERED: NS 0.9% VIAL 20 ML ONE (07:39)
[2024-06-01] MEDS: NA CHLORIDE 0.9% 1,000 ML ONE ×2 (07:52→09:15)
[2024-06-01] MEDS ORDERED: FENTANYL CITR 100 MCG/2 ML ONE (07:59)
[2024-06-01] MEDS ORDERED: LIDOCAINE 1% MPF 5 ML VIAL ONE (07:59)
[2024-06-01] MEDS ORDERED: MIDAZOLAM HCL 2 MG/2 ML INJ ONE (07:59)
[2024-06-01] MEDS ORDERED: propofoL 200 MG/20 ML VIAL IV ONE (07:59)
[2024-06-01] MEDS: INSULIN REGULAR (HUMAN) 100 UNIT/ML ONE (08:04)
[2024-06-01] MEDS: CEFAZOLIN SODIUM 2 GM/VIAL ONE (08:50)
[2024-06-01] MEDS ORDERED: EPHEDRINE SULF 50 MG/ML VIAL ONE (08:51)
[2024-06-01] MEDS: BUPIVACAINE 0.5% PF 10 ML VIAL ONE (09:04)
[2024-06-01] MEDS: LIDOCAINE 1% 20 ML MDV ONE (09:04)
[2024-06-01] MEDS ORDERED: Phenylephrine HCl 10 MG/ML 1 ML VIAL ONE ×2 (09:15→09:18)
[2024-06-01] MEDS: HEPARIN 5000 UNIT/ML 1 ML VIAL ONE (09:32)
--- NOTE | 2024-06-01 10:22 | P.OP ---
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 General anesthesia began. Patient prepped and draped in usual fashion. Lidocaine 1% infiltrated locally. 15 blade used to make a 4 x 2 cm incision across the left chest to include a 1.5 cm ulcerated mass subcu tissue divided and the entire mass excised and sent to pathology for frozen section. 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 Flaps created and 3-0 chromic used to reapproximate subcutaneous tissue. 5-0 nylon used to close skin. Sterile dressing applied. Doppler device used to isolate left internal jugular vein. 18-gauge needle used to access the vein and guidewire passed under fluoroscopy. 3 cm incision made on the left anterior chest. Pocket created. Bleeding controlled with cautery. Tunneling device used to tunnel the catheter between the 2 wounds. Seldinger technique used. Catheter placed at the SVC right atrial junction under fluoroscopy. Catheter cut to appropriate size. Catheter and port attached to each other. The port attached to subcutaneous tissue with 3-0 Vicryl. 3-0 chromic used to approximate subcutaneous tissue and close skin. Port flushed with heparin and packed with heparin with good blood flow. Sterile dressing applied. Patient awakened and taken to recovery room in good general condition. Chest x-ray has been ordered. CC: Dr. Anguiano's office
--- NOTE | 2024-06-01 10:38 | RAD REPORT ---
EXAM: Fluoroscopy use, Fluoroscopy <1 Hour HISTORY: PORT-A-CATH COMPARISON: None FINDINGS: Multiple images were sent to PACS, during a fluoroscopically guided procedure. No radiologi st was involved in protocoling or performance of the study, and no radiologist was present for the duration of the procedure. No interpretation of the saved images will be provided. Total fluoroscopy time: 0.4. IMPRESSION: Documentation of fluoroscopy use as above. Transcribed Date/Time: 06/01/2024 10:37 AM
--- NOTE | 2024-06-01 11:06 | EKG ---
Test Date: 2024-05-31 Test Time: 11:23:13 Acquisition Editor: MEASUREMENT RESULTS: Intervals: Rate: 96 NJ: 140 QRSD: 136 QT: 394 QTc: 497 [place]: P: 51 NJ: 140 QRS: -80 T: 43 INTERPRETIVE STATEMENTS: Normal sinus rhythm Right bundle branch block Left anterior fascicular block Bifascicular block Minimal voltage criteria for LVH, may be normal variant Anterior infarct, age undetermined Abnormal ECG Compared to ECG 02/19/2024 10:07:31 Left ventricular hypertrophy now present Myocardial infarct finding now present Bifascicular block still present Electronically Signed On 06-01-24 11:04:02 [employer]ETTE [employer]OOK [employer] by Sawyer Turner
--- NOTE | 2024-06-01 11:29 | RAD REPORT ---
EXAMINATION: ONE VIEW CHEST XR CLINICAL INDICATION: Male, 63 years old.,S/P PORT A CATH PLACEMENT TECHNIQUE: Frontal chest projection is submitted. Examination is limited by patient positioning and t echnique. COMPARISON: 02/19/2024 FINDINGS: Left Port-A-Cath in place with catheter tip at the superior cavoatrial junction. The lungs are grossl y clear although suboptimal inspiratory effort somewhat limits evaluation. No pneumothorax or sizable effusion. The heart is normal in size. Mediastinal contours are unremarkable. IMPRESSION: Satisfactory positioning of left chest wall Port-A-Cath. No acute intrathoracic abnormalities.
[2024-06-01] MEDS ORDERED: HYDROCODONE/APAP 7.5/325 MG TAB ONE (11:37)
[2024-06-01] MEDS: HYDROCODONE/APAP 7.5/325 MG TAB PO PRN (11:57)
[2024-06-01 13:57] VITALS: BP 98/55; TEMP 97.3; O2SAT 98
== END 2024-06-01 12:20 | disposition home or self-care (01) ==
LOC: OR 06:38
PROVIDERS: ATTEND Surgery
PROC: 0HB5XZZ Excision of Chest Skin, External Approach (ICD-10-PCS; principal; 2024-06-01 08:15)
DX: D04.5 Carcinoma in situ of skin of trunk (principal); C67.9 Malignant neoplasm of bladder, unspecified; Z85.819 Personal history of malignant neoplasm of unspecified site of lip, oral cavity, and pharynx
CPT/HCPCS: 71045; 76000; 82947; 88305; 88331; 88332; 93005; A4216; C1788; J1644; J1815; J2003; J2250; J2371; J2704; J3010; J7030